=== PATIENT | female | born 2000 | race Two or more races ===

== ENCOUNTER 2025-06-14 13:25 | Outpatient (AMB) | payer MEDICAID, SELFPAY ==
[2025-06-14 13:38] VITALS: BP 124/83; PULSE 93; RESP 18; TEMP 36.7; O2SAT 95; BMI 42.8
--- NOTE | 2025-06-14 13:38 | AMB.OBINITIA ---
Vital Signs 06/14/25 13:38 Height 1.66 m Height Method Stated Weight 118.614 kg Weight Measurement Method Standing Scale BMI 42.8 BP 124/83 Blood Pressure Source Automatic Cuff Blood Pressure Location Left Upper Arm Position Sitting Respiration 18 Pulse 93 Pulse Source Monitor Temp 98.1 F Temp Source Oral Pulse Oximetry (%) 95 Oxygen Delivery Method Room Air Allergies/Home Meds Allergies & Medications Allergies No Known Allergies Allergy (Verified 06/14/25 13:41) Medication Reconciliation aspirin 81 mg tablet 81 mg PO QDAY 06/14/25 [History Confirmed 06/14/25] blood sugar diagnostic (Blood Glucose Test strips) #50 ea 06/14/25 [Rx] blood-glucose meter #1 ea 06/14/25 [Rx] labetalol 200 mg tablet 200 mg PO BID 06/14/25 [History Confirmed 06/14/25] lancets #100 ea 06/14/25 [Rx] metformin 500 mg tablet 500 mg PO BID 06/14/25 [History Confirmed 06/14/25] Intake Visit Data Collection New Patient or Established: New Patient (never been to [facility]) Reason for Visit:: TRANSFER INITIAL CARE Seen by Clinical Staff ONLY (RN/MA): No Forestry Hunter Required: No Do You Feel Safe at Home: Yes Authorities Contacted: N/A PCP or OBGYN visit in last 3 months: Yes Hx Now: Yes Are you currently on any form of Control: No Pain Present Currently: No Pain Scale Used: Mcgrath-Calvert/Numerical Pain scale:: 0 Smoking Status Smoking Status: Never smoker Immunizations Flu Vaccine in the Last 12 Months: No Flu Vaccine Exclusion Criteria: Refused by Patient Questionnaires Covid-19 Vaccine Questionnaire Has patient been vacinated for Covid-19 Have you been vacinated for Covid-19: No PHQ-9 PHQ-2 Over the last 2 weeks, how often have you been bothered by any of the following problems? 1. Little interest or pleasure in doing things: not at all 2. Feeling down, depressed, or hopeless: not at all Total score: 0 PHQ-9 3. Trouble falling or staying asleep, or sleeping too much: Not at all 4. Feeling tired or having little energy: Not at all 5. Poor appetite or overeating: Not at all 6. Feeling bad about yourself - or that you are a failure or have let yourself or your family down: Not at all 7. Trouble concentrating on things, such as reading the newspaper or watching television: Not at all 8. Moving or speaking so slowly that other people could have noticed? - Or the opposite - being so fidgety or restless that you have been moving around a lot more than usual: not at all 9. Thoughts that you would be better off or of hurting yourself in some way: Not at all Total score: 0 Source: Developed by Drs. Wale Tavares, Kandis Kennedy, Marcos Gutierrez and colleagues, with an educational andrea from [employer]. Depression screen completed yes Social History Living Situation History Lives With: Family Housing: House Tobacco History Smoking Status: Never smoker Second Hand Smoke Exposure: No Alcohol History Alcohol Intake: Never Domestic Abuse History Do You Feel Safe at Home: Yes History of Present Illness HPI Narrative 25-year-old 1 para 0 for OB. Patient is a transfer from Dr. Hernandez's office at 34 weeks. Prior to 26 weeks patient was also seen in clinic at [facility]. Patient has a history of being prediabetic and also high blood pressures however she never saw family [facility] practice for high blood pressures nor is she treated. History of irregular periods and obesity. Patient's last period was October 06, 2024. First ultrasound was [facility]. Patient was 9 weeks on January 08, 2025. And this gave a due date of August 05, 2025. Patient's first ultrasound with Dr. Macias was on May 10, 2025. The baby was 29 weeks 2 days and this gave an EDC of July 24, 2025. Looks like Dr. Macias changed her due date to July 24, 2025 because the baby was measuring big. Patient denies social habits. Denies surgery. She reports movement. Denies leaking or bleeding. Patient stated that she was started on labetalol 200 3 times daily and reports good compliance with taking that. She also reports that she was started on metformin 500 twice daily. Had a brief discussion about GDM diet. It was not advised to monitor her sugars. 1 hour was 147. In 3-hour values her fastin and 1-hour were all elevated. Her carrier screens were negative. She also had a CMP which was normal. Total protein was 252 and volume for 24-hour urine was 1750. Patient was not anemic RPR was nonreactive.GC/CT- CHISEL GRINDER: Past Medical History Past Medical History: Yes Hx Hypertension and Yes Hx Diabetes Mellitus Type 2 OB Initial Visit OB Flowsheet OB Flowsheet Initial Weight: Not Recorded Date <del>?</del> EGA Weight BP Alb Glu CTX Pres Fundal ht FHR Mov Dilation Station Effacement Hx Notes Visit Note 06/14/25 <del>?</del> 34w 2d 118.614 kg 124/83 absent unknown 34 145 active OB transfer from Dr. Macias with records. History of GDM on metformin 500 mg twice daily. She is taking labetalol 200 3 times daily for history of hypertension. Patient has a previous history of being prediabetic and she also states that her blood pressures have been high when she is going to the doctor but she has not had management. Her labs are incomplete. She has an MFM appointment coming up in June 30 Continue to take labetalol 200 3 times daily. And metformin 500 twice daily. I discussed GDM diet with patient. I ordered her glucose monitoring equipment including glucometer, lancets and test strips. She will test 4 times a day. I advised her to walk for 40 minutes a day and 10 minutes after each meal. Recheck in discussed parameters for her glucose testing. Discussed kick count twice a day. I will schedule weekly NST BPP. She will keep an appointment with MFM for June 30. If unable to locate her OB panel then I will do that when I see her next time along with GBS Menstrual History Menstrual reliability: definite Flow: heavy Menstrual regularity: irregular Monthly: No Age at menarche: 13 On control pills at conception: No Associated symptoms (LMP): Denies amenorrhea, nausea, vomiting, fatigue, breast tenderness, urinary frequency, irritability, bloating or other OB History : 1 # of Living Children: 0 Infection History & Risk Evaluation History of STDs: none Genetic Screening & History Genetic Screening/Teratology Counseling - Includes patient, baby's father, or anyone in either family with: 1. Patient's age 35 years or older as of estimated date of delivery: No 2. Thalassemia (Romanian, Nepali, Mediterranean, or Background); MCV less than 80: No 3. Neural Tube Defect (Meningomyelocele, Spina Bifida, or Anencephaly): No 4. Congenital Heart Defect: No 5. Down Syndrome: No 6. Sridhar-Sachs (Ashkenazi Nondenominational, Cajun, [place]ic [place]): No 7. Luly Disease (Ashkenazi Nondenominational): No 8. Familial Dysautonomia (Ashkenazi Nondenominational): No 9. Sickle Cell Disease or Trait (): No 10. Hemophilia or other blood disorders: No 11. Muscular Dystrophy: No 12. Cystic Fibrosis: No 13. Naty's Chorea: No 14. Mental Retardation/Autism: No 15. Other inherited genetic or chromosomal disorder: No 16. Maternal Metabolic Disorder (EG,TYPE 1 Diabetes, PKU): No 17. Patient or baby's father had a child with defects not listed above: No 18. Recurrent loss or a stillbirth: No 19. Medications (including supplements, vitamins, herbs or otc drugs)/illicit/recreational drugs/alcohol since last menstrual period: No 20. Any other: No Infection History 1. Live with someone with TB or exposed to TB: No 2. Rash or viral illness since last menstrual period: No 3. Hepatitis B,C: No Other (see comments) Source: [employer] Review of Systems Constitutional Constitutional: Denies fatigue Gastrointestinal Gastrointestinal: Denies bloating, Denies nausea and Denies vomiting Genitourinary Genitourinary: Denies amenorrhea and Denies urinary frequency Psychiatric Psychiatric: Denies irritability Endocrine Endocrine: Denies fatigue Office Procedures OBC Clinic LOC & Office Proc's Nursing/Assessment Patient Status: Initial/New Patient OB Clinic Nursing Assessment: Medication Reconciliation, Update PMH in EMR and Vital Signs OB Clinic Coordination of Care: Complex Care and Chronic Disease 1-5, Consent,records obtained, informed consent, Education Simp Pt/Fam, 1 Ins Authorization, Lab and Imaging orders, Results/Orders obtained and Staff clarify orders Special Needs: Heart tones New Patient Charge New Patient Point Assignment: [id number] New Patient Point Charge: GRADES 7 AND 8 VISITING TEACHER Level 4 ([id number]) Assessment & Plan Diagnosis / Problem List (1) Encounter for supervision of high risk in third trimester, antepartum: Status: Acute (2) Diet controlled gestational diabetes mellitus (GDM) in third trimester: Status: Acute (3) Gestational [-induced] hypertension without significant proteinuria, complicating childbirth: Status: Acute Plan Continue labetalol 200 3 times daily. Continue metformin 500 mg p.o. twice daily. I reviewed GDM diet with patient. Advised her to walk 40 minutes a day and 10 minutes after each meal. We discussed logging her glucose results after testing. Patient to test 4 times a day. I ordered her meter and strips and lancets to the pharmacy. I scheduled biweekly NST BPP. Patient is can to keep her appointment she has on the and June at [facility]. She will return in a week. Kick count twice a day. Additional Plan Follow Up: 1 Week (obc)
== END 2025-06-14 14:17 | disposition home or self-care (01) ==
LOC: HODSOBC 13:25
PROVIDERS: Supervising Provider Advanced Practice Midwife; Visit Provider Advanced Practice Midwife
DX: O09.893 Supervision of other high risk pregnancies, third trimester (principal); O13.3 Gestational [pregnancy-induced] hypertension without significant proteinuria, third trimester; O24.415 Gestational diabetes mellitus in pregnancy, controlled by oral hypoglycemic drugs; Z3A.34 34 weeks gestation of pregnancy
CPT/HCPCS: 99204; G0463

== ENCOUNTER 2025-07-06 14:19 | Outpatient (AMB) | payer MEDICAID, SELFPAY ==
[2025-07-06 14:29] VITALS: BP 128/84; PULSE 80; RESP 18; TEMP 36.2; O2SAT 98; BMI 43.8
--- NOTE | 2025-07-06 14:29 | AMB.OBPNC ---
Vital Signs 07/06/25 14:29 Height 1.66 m Height Method Stated Weight 120.826 kg Weight Measurement Method Standing Scale BMI 43.8 BP 128/84 Blood Pressure Source Automatic Cuff Blood Pressure Location Left Upper Arm Position Sitting Respiration 18 Pulse 80 Pulse Source Monitor Temp 97.2 F Temp Source Oral Pulse Oximetry (%) 98 Oxygen Delivery Method Room Air Allergies/Home Meds Allergies & Medications Allergies No Known Allergies Allergy (Verified 07/06/25 14:30) Medication Reconciliation aspirin 81 mg tablet 81 mg PO QDAY 06/14/25 [History Confirmed 07/06/25] blood sugar diagnostic (Blood Glucose Test strips) #50 ea 06/14/25 [Rx Confirmed 07/06/25] blood-glucose meter #1 ea 06/14/25 [Rx Confirmed 07/06/25] labetalol 200 mg tablet 200 mg PO BID 06/14/25 [History Confirmed 07/06/25] lancets #100 ea 06/14/25 [Rx Confirmed 07/06/25] metformin 500 mg tablet 500 mg PO BID 06/14/25 [History Confirmed 07/06/25] Immunizations Immunizations Flu Vaccine in the Last 12 Months: No Flu Vaccine Exclusion Criteria: No Exclusion Criteria Care OB Visit Log OB Flowsheet Initial Weight: Not Recorded Date <del>?</del> EGA Weight BP Alb Glu CTX Pres Fundal ht FHR Mov Dilation Station Effacement Hx Notes Visit Note 06/14/25 <del>?</del> 32w 4d 118.614 kg 124/83 absent unknown 34 145 active OB transfer from Dr. Macias with records. History of GDM on metformin 500 mg twice daily. She is taking labetalol 200 3 times daily for history of hypertension. Patient has a previous history of being prediabetic and she also states that her blood pressures have been high when she is going to the doctor but she has not had management. Her labs are incomplete. She has an MFM appointment coming up in June 30 Continue to take labetalol 200 3 times daily. And metformin 500 twice daily. I discussed GDM diet with patient. I ordered her glucose monitoring equipment including glucometer, lancets and test strips. She will test 4 times a day. I advised her to walk for 40 minutes a day and 10 minutes after each meal. Recheck in discussed parameters for her glucose testing. Discussed kick count twice a day. I will schedule weekly NST BPP. She will keep an appointment with [facility] for June 30. If unable to locate her OB panel then I will do that when I see her next time along with GBS 06/24/25 <del>?</del> 34w 0d 86.353 kg 116/71 absent cephalic 34 145 active Patient did not denies contractions. Denies bleeding. Denies leaking. Patient denies headaches, blurred vision, epigastric pain. Compliant with her labetalol 200 twice daily. And patient is also doing weekly NST BPP. Sugars are at goal 90% of the time. Patient is taking her metformin 500 twice daily. Patient did not denies contractions. Denies bleeding. Denies leaking. Patient denies headaches, blurred vision, epigastric pain. Compliant with her labetalol 200 three times daily. And patient is also doing weekly NST BPP. Sugars are at goal 90% of the time. Patient is taking her metformin 500 twice daily. Continue labetalol 200 mg 3 times daily. Patient is to continue metformin 500 mg twice daily. Continue to monitor blood sugars 4 times a day. We reviewed parameters. Walk 40 minutes a day. Patient will continue weekly NST BPP. Kick count twice a day. GBS today. Will induce at 39 weeks. Reviewed dating and labs with patient Continue labetalol 200 mg 3 times daily. Patient is to continue metformin 500 mg twice daily. Continue to monitor blood sugars 4 times a day. We reviewed parameters. Walk 40 minutes a day. Patient will continue weekly NST BPP. Kick count twice a day. GBS today. Will induce at 39 weeks. Reviewed dating and labs with patient. IOL 07/25/25 07/06/25 <del>?</del> 35w 5d 120.826 kg 128/84 absent cephalic 35 145 active Denies PIH complaints. Denies headache, blurred vision, epigastric pain. Reports good movement. Denies leaking, bleeding, contractions Continue labetalol 200 3 times daily. Continue metformin 500 p.o. twice daily continue GDM diet. We reviewed GDM diet reviewed reviewed parameters for blood sugars. Patient stated in a week her blood sugars overall were at or below goal. Patient is compliant weekly with biweekly NST BPP. She is kick count twice a day. Return in a week for OB check TOMÁS Calculator Estimated Delivery Date Method Current WG Current Estimate 08/05/25 Ultrasound #1 35w 5d Other Estimates 07/13/25 LMP (Uncertain) 39w 0d 07/24/25 Ultrasound #2 37w 3d 08/05/25 Manual 35w 5d final tomás: 08/05/25 Notes Visit Date: 07/06/25 Last Updated by: Jesenia Henriquez CNM 3rd tri lab: HCV-,HBSAG-,rpr::NR, rub NI, GC/CT-, O+,ABS-, , cmp: SGOT: 29 (wnl), ALT/SGPT: 42(high)BUN/Creatinine: 13, GBS-, OB sono: 06/30: 34w2, EFW: 91%, TOMÁS: 08/09/25 Visit Date: 06/24/25 Last Updated by: Jesenia Henriquez CNM 3rd tri labs: GC/CT-, RPR and::NR, NIPT-, CF/SMA- 25 yo , elevated BMI, GDM on metformin 500 BID and labetolol 200mg tid unsure dates: LMP: 10/06/24. 1st OB sono: 01/05/25: IUP 9w5. EDC: 08/05/25 Office Procedures OBC Clinic LOC & Office Proc's Nursing/Assessment Patient Status: Established Patient OB Clinic Nursing Assessment: Medication Reconciliation, Update PMH in EMR and Vital Signs OB Clinic Coordination of Care: Education Complex Pt/Fam, Lab and Imaging orders, Results/Orders obtained and Staff clarify orders Special Needs: Heart tones Established Patient Charge Established Patient Point Assignment: 110 Established Patient Point Charge: EP Level 3 (80-115) Assessment & Plan Diagnosis / Problem List (1) Obesity complicating , third trimester: Status: Acute Qualifiers: Obesity type affecting : severe obesity due to excess calories Qualified Code(s): O99.213 - Obesity complicating , third trimester; E66.01 - Morbid (severe) obesity due to excess calories (2) Gestational [-induced] hypertension without significant proteinuria, complicating childbirth: Status: Acute (3) Diet controlled gestational diabetes mellitus (GDM) in third trimester: Status: Acute Plan Continue metformin 500 twice daily. Continue labetalol 200 3 times daily. Reviewed the ER precautions. Reviewed signs symptoms of PIH such as blurred vision, epigastric pain headache. Discussed kick count twice a day. Continue biweekly NST BPP. Continue GDM diet. Continue to log sugars and 4 times a day. I reviewed parameters again with patient she reports that her sugars are at least at or below goal 90% of the time. I will schedule patient with OB to follow-up on management. And return in a week OB check Additional Plan Follow Up: 1 Week (obc)
== END 2025-07-06 14:54 | disposition home or self-care (01) ==
LOC: HODSOBC 14:19
PROVIDERS: Supervising Provider Advanced Practice Midwife; Visit Provider Advanced Practice Midwife
DX: O09.893 Supervision of other high risk pregnancies, third trimester (principal); O99.213 Obesity complicating pregnancy, third trimester; O24.415 Gestational diabetes mellitus in pregnancy, controlled by oral hypoglycemic drugs; Z3A.35 35 weeks gestation of pregnancy
CPT/HCPCS: 99213; G0463

== ENCOUNTER 2025-07-12 09:01 | Outpatient (AMB) | payer MEDICAID, SELFPAY ==
[2025-07-12 09:16] VITALS: BP 124/83; PULSE 80; RESP 16; TEMP 36.3; O2SAT 98; BMI 42.8
--- NOTE | 2025-07-12 09:16 | OBCLNT_ITS ---
Vital Signs 07/12/25 09:16 Height 1.66 m Height Method Stated Weight 118.104 kg Weight Measurement Method Standing Scale BMI 42.8 BP 124/83 Blood Pressure Source Automatic Cuff Blood Pressure Location Left Upper Arm Position Sitting Respiration 16 Pulse 80 Pulse Source Monitor Temp 97.3 F Temp Source Oral Pulse Oximetry (%) 98 Oxygen Delivery Method Room Air Allergies/Home Meds Allergies & Medications Allergies No Known Allergies Allergy (Verified 07/12/25 09:17) Medication Reconciliation blood sugar diagnostic (Blood Glucose Test strips) #50 ea 06/14/25 [Rx Confirmed 07/06/25] blood-glucose meter #1 ea 06/14/25 [Rx Confirmed 07/12/25] labetalol 200 mg tablet 200 mg PO BID 06/14/25 [History Confirmed 07/12/25] lancets #100 ea 06/14/25 [Rx Confirmed 07/12/25] metformin 500 mg tablet 500 mg PO BID 06/14/25 [History Confirmed 07/12/25] Immunizations Immunizations Flu Vaccine in the Last 12 Months: No Flu Vaccine Exclusion Criteria: Refused by Patient Care OB Visit Log OB Flowsheet Initial Weight: Not Recorded Date -?-?-?-?-?-?-?-?-?-?-?-?- EGA Weight BP Alb Glu CTX Pres Fundal ht FHR Mov Dilation Station Effacement Hx Notes Visit Note 06/14/25 -?-?-?-?-?-?-?-?-?-?-?-?- 32w 4d 118.614 kg 124/83 absent unknown 34 145 active OB transfer from Dr. Macias with records. History of GDM on metformin 500 mg twice daily. She is taking labetalol 200 3 times daily for history of hypertension. Patient has a previous history of being prediabetic and she also states that her blood pressures have been high when she is going to the doctor but she has not had management. Her labs are incomplete. She has an MFM appointment coming up in June 30 Continue to take labetalol 200 3 times daily. And metformin 500 twice daily. I discussed GDM diet with patient. I ordered her glucose monitoring equipment including glucometer, lancets and test strips. She will test 4 times a day. I advised her to walk for 40 minutes a day and 10 minutes after each meal. Recheck in discussed parameters for her glucose testing. Discussed kick count twice a day. I will schedule weekly NST BPP. She will keep an appointment with [facility] for June 30. If unable to locate her OB panel then I will do that when I see her next time along with GBS 06/24/25 -?-?-?-?-?-?-?-?-?-?-?-?- 34w 0d 86.353 kg 116/71 absent cephalic 34 145 active Patient did not denies contractions. Denies bleeding. Denies leaking. Patient denies headaches, blurred vision, epigastric pain. Compliant with her labetalol 200 twice daily. And patient is also doing weekly NST BPP. Sugars are at goal 90% of the time. Patient is taking her metformin 500 twice daily. Patient did not denies contr actions. Denies bleeding. Denies leaking. Patient denies headaches, blurred vision, epigastric pain. Compliant with her labetalol 200 three times daily. And patient is also doing weekly NST BPP. Sugars are at goal 90% of the time. Patient is taking her metformin 500 twice daily. Continue labetalol 200 mg 3 times daily. Patient is to continue metformin 500 mg twice daily. Continue to monitor blood sugars 4 times a day. We reviewed parameters. Walk 40 minutes a day. Patient will continue weekly NST BPP. Kick count twice a day. GBS today. Will induce at 39 weeks. Reviewed dating and labs with patient Continue labetalol 200 mg 3 times daily. Patient is to continue metformin 500 mg twice daily. Continue to monitor blood sugars 4 times a day. We reviewed parameters. Walk 40 minutes a day. Patient will continue weekly NST BPP. Kick count twice a day. GBS today. Will induce at 39 weeks. Reviewed dating and labs with patient. IOL 07/25/25 07/06/25 -?-?-?-?-?-?-?-?-?-?-?-?- 35w 5d 120.826 kg 128/84 absent cephalic 35 14 5 active Denies PIH complai nts. Denies headache, blurred vision, epigastric pain. Reports good movement. Denies leaking, bleeding, contractions Continue labetalol 200 3 times daily. Continue metformin 500 p.o. twice daily continue GDM diet. We reviewed GDM diet reviewed reviewed parameters for blood sugars. Patient stated in a week her blood sugars overall were at or below goal. Patient is compliant weekly with biweekly NST BPP. She is kick count twice a day. Return in a week for OB check 07/12/25 -?-?-?-?-?-?-?-?-?-?-?-?- 36w 4d 118.104 kg 124/83 absent cephalic 37 14 5 Patient reports fasting blood sugars are all below 100. Reports after meals below 130. Patient continues to test blood sugars 4 times a day. She has been going to her biw [employer] NST BPP. Reports good movement. Denies leaking, bleeding, contractions Continue biweekl y NST BPP. Kick count twice a day. Continue metformin 500 twice daily. Labetalol 200 mg p.o. 3 times daily. Patient continues to monitor blood sugars 4 times a day. And is compliant with GDM diet and walking. Discussed danger signs symptoms. Return in a week OB TOMÁS Calculator Estimated Delivery Date Method Current WG Current Estimate 08/05/25 Ultrasound #1 36w 4d Other Estimates 07/13/25 LMP (Uncertain) 39w 6d 07/24/25 Ultrasound #2 38w 2d 08/05/25 Manual 36w 4d final tomás: 07/18 05/12 Notes Visit Date: 07/12/25 Last Updated by: Jesenia Henriquez CNM sono: 06/30/25: [id number], EFW 91%/VTX, normal LON Visit Date: 07/06/25 Last Updated by: Jesenia Henriquez CNM 3rd tri lab: HCV-,HBSAG-,rpr::NR, rub NI, GC/CT-, O+,ABS-, , cmp: SGOT: 29 (wnl), ALT/SGPT: 42(high)BUN/Creatinine: 13, GBS-, OB sono: 06/30: 34w2, EFW: 91%, TOMÁS: 08/09/25 Visit Date: 06/24/25 Last Updated by: Jesenia Henriquez CNM 3rd tri labs: GC/CT-, RPR and::NR, NIPT-, CF/SMA- 25 yo , elevated BMI, GDM on metformin 500 BID and labetolol 200mg tid unsure dates: LMP: 10/06/24. 1st OB sono: 01/05/25: IUP 9w5. EDC: 08/05/25 Office Procedures OBC Clinic LOC & Office Proc's Nursing/Assessment Patient Status: Established Patient OB Clinic Nursing Assessment: Medication Reconciliation, Update PMH in EMR and Vital Signs OB Clinic Coordination of Care: Complex Care and Chronic Disease 1-5, Consent,records obtained, informed consent, Education Simp Pt/Fam, 1 Ins Authorization, Lab and Imaging orders, Results/Orders obtained and Staff clarify orders Special Needs: Heart tones Established Patient Charge Established Patient Point Assignment: 150 Established Patient Point Charge: EP Level 4 (120-155) Assessment & Plan Diagnosis / Problem List (1) Obesity complicating , third trimester: Status: Acute Qualifiers: Obesity type affecting : severe obesity due to excess calories Qualified Code(s): O99.213 - Obesity complicating , third trimester; E66.01 - Morbid (severe) obesity due to excess calories (2) Gestational [-induced] hypertension without significant proteinuria, complicating childbirth: Status: Acute (3) Diet controlled gestational diabetes mellitus (GDM) in third trimester: Status: Acute Plan Continue weekly NST BPP. Continue GDM diet. Continue metformin 500 twice daily and labetalol. Walk 40 minutes a day. Kick count twice a day. Continue low- dose baby aspirin as directed. Continue testing blood sugars 4 times a day and return with OB for GDM management. Additional Plan Follow Up: 1 Week (obc)
== END 2025-07-12 09:54 | disposition home or self-care (01) ==
PROVIDERS: Supervising Provider Advanced Practice Midwife; Visit Provider Advanced Practice Midwife
DX: O09.893 Supervision of other high risk pregnancies, third trimester (principal); O99.213 Obesity complicating pregnancy, third trimester; O24.415 Gestational diabetes mellitus in pregnancy, controlled by oral hypoglycemic drugs; O13.3 Gestational [pregnancy-induced] hypertension without significant proteinuria, third trimester; Z28.21 Immunization not carried out because of patient refusal; Z3A.36 36 weeks gestation of pregnancy
CPT/HCPCS: 99214; G0463

== ENCOUNTER 2025-07-19 08:58 | Outpatient (AMB) | payer MEDICAID, SELFPAY ==
[2025-07-19 09:10] VITALS: BP 131/83; PULSE 87; RESP 18; TEMP 36.8; O2SAT 98; BMI 43.4
--- NOTE | 2025-07-19 09:10 | OBCLNT_ITS ---
Vital Signs 07/19/25 09:10 Height 1.66 m Height Method Stated Weight 119.748 kg Weight Measurement Method Standing Scale BMI 43.4 BP 131/83 H Blood Pressure Source Automatic Cuff Blood Pressure Location Left Upper Arm Position Sitting Respiration 18 Pulse 87 Pulse Source Monitor Temp 98.2 F Temp Source Oral Pulse Oximetry (%) 98 Oxygen Delivery Method Room Air Allergies/Home Meds Allergies & Medications Allergies No Known Allergies Allergy (Verified 07/19/25 10:45) Immunizations Immunizations Flu Vaccine in the Last 12 Months: No Flu Vaccine Exclusion Criteria: No Exclusion Criteria Care OB Visit Log OB Flowsheet Initial Weight: Not Recorded Date -?-?-?-?-?-?-?-?-?-?-?-?- EGA Weight BP Alb Glu CTX Pres Fundal ht FHR Mov Dilation Station Effacement Hx Notes Visit Note 06/14/25 -?-?-?-?-?-?-?-?-?-?-?-?- 32w 4d 118.614 kg 124/83 absent unknown 34 145 active OB transfer from Dr. Macias with records. History of GDM on metformin 500 mg twice daily. She is taking labetalol 200 3 times daily for history of hypertension. Patient has a previous history of being prediabetic and she also states that her blood pressures have been high when she is going to the doctor but she has not had management. Her labs are incomplete. She has an M appointment coming up in June 30 Continue to take labetalol 200 3 times daily. And metformin 500 twice daily. I discussed GDM diet with patient. I ordered her glucose monitoring equipment including glucometer, lancets and test strips. She will test 4 times a day. I advised her to walk for 40 minutes a day and 10 minutes after each meal. Recheck in discussed parameters for her glucose testing. Discussed kick count twice a day. I will schedule weekly NST BPP. She will keep an appointment with [facility] for June 30. If unable to locate her OB panel then I will do that when I see her next time along with GBS 06/24/25 -?-?-?-?-?-?-?-?-?-?-?-?- 34w 0d 86.353 kg 116/71 absent cephalic 34 145 active Patient did not denies contractions. Denies bleeding. Denies leaking. Patient denies headaches, blurred vision, epigastric pain. Compliant with her labetalol 200 twice daily. And patient is also doing weekly NST BPP. Sugars are at goal 90% of the time. Patient is taking her metformin 500 twice daily. Patient did not denies contr actions. Denies bleeding. Denies leaking. Patient denies headaches, blurred vision, epigastric pain. Compliant with her labetalol 200 three times daily. And patient is also doing weekly NST BPP. Sugars are at goal 90% of the time. Patient is taking her metformin 500 twice daily. Continue labetalol 200 mg 3 times daily. Patient is to continue metformin 500 mg twice daily. Continue to monitor blood sugars 4 times a day. We reviewed parameters. Walk 40 minutes a day. Patient will continue weekly NST BPP. Kick count twice a day. GBS today. Will induce at 39 weeks. Reviewed dating and labs with patient Continue labetalol 200 mg 3 times daily. Patient is to continue metformin 500 mg twice daily. Continue to monitor blood sugars 4 times a day. We reviewed parameters. Walk 40 minutes a day. Patient will continue weekly NST BPP. Kick count twice a day. GBS today. Will induce at 39 weeks. Reviewed dating and labs with patient. IOL 07/25/25 07/06/25 -?-?-?-?-?-?-?-?-?-?-?-?- 35w 5d 120.826 kg 128/84 absent cephalic 35 14 5 active Denies PIH complai nts. Denies headache, blurred vision, epigastric pain. Reports good movement. Denies leaking, bleeding, contractions Continue labetalol 200 3 times daily. Continue metformin 500 p.o. twice daily continue GDM diet. We reviewed GDM diet reviewed reviewed parameters for blood sugars. Patient stated in a week her blood sugars overall were at or below goal. Patient is compliant weekly with biweekly NST BPP. She is kick count twice a day. Return in a week for OB check 07/12/25 -?-?-?-?-?-?-?-?-?-?-?-?- 36w 4d 118.104 kg 124/83 absent cephalic 37 14 5 Patient reports fasting blood sugars are all below 100. Reports after meals below 130. Patient continues to test blood sugars 4 times a day. She has been going to her biw eekly NST BPP. Reports good movement. Denies leaking, bleeding, contractions Continue biweekl y NST BPP. Kick count twice a day. Continue metformin 500 twice daily. Labetalol 200 mg p.o. 3 times daily. Patient continues to monitor blood sugars 4 times a day. And is compliant with GDM diet and walking. Discussed danger signs symptoms. Return in a week OB 07/19/25 -?-?-?-?-?-?-?-?-?-?-?-?- 37w 4d 119.748 kg 131/83 absent cephalic 38 14 5 active Reviewed blood sugars with OB on-call. Patient to continue metformin 500 twice daily. Also patient was scheduled for induction July 23. Morning reports good movement. Denies bleeding, contractions. Patient unsure if she has been leaking fluid. Her LON had decreased on Friday. Blood sugars are at goal 85% of the time Reviewed GDM t and weight gain. Doing low-carb and decrease sugary foods. Walk 10 minutes after each meal. Continue metformin 500 twice daily. And labetalol 200 3 times daily. Patient's induction date was changed to July 23. Patient is to keep her repeat NST BPP for July 21. Discussed signs and symptoms of labor and leaking fluid. Kick count twice a day. Patient sent to labor and delivery for rule out rupture membranes. TOMÁS Calculator Estimated Delivery Date Method Current WG Current Estimate 08/05/25 Ultrasound #1 37w 4d Other Estimates 07/13/25 LMP (Uncertain) 40w 6d 07/24/25 Ultrasound #2 39w 2d 08/05/25 Manual 37w 4d final tomás: 07/18 05/12, 06/30:iup 34w2,EFW:91% Notes Visit Date: 07/12/25 Last Updated by: Jesenia Henriquez CNM sono: 06/30/25: [id number], EFW 91%/VTX, normal LON Visit Date: 07/06/25 Last Updated by: Jesenia Henriquez CNM 3rd tri lab: HCV-,HBSAG-,rpr::NR, rub NI, GC/CT-, O+,ABS-, , cmp: SGOT: 29 (wnl), ALT/SGPT: 42(high)BUN/Creatinine: 13, GBS-, OB sono: 06/30: 34w2, EFW: 91%, TOMÁS: 08/09/25 Visit Date: 06/24/25 Last Updated by: Jesenia Henriquez CNM 3rd tri labs: GC/CT-, RPR and::NR, NIPT-, CF/SMA- 25 yo , elevated BMI, GDM on metformin 500 BID and labetolol 200mg tid unsure dates: LMP: 10/06/24. 1st OB sono: 01/05/25: IUP 9w5. EDC: 08/05/25 Office Procedures OBC Clinic LOC & Office Proc's Nursing/Assessment Patient Status: Established Patient OB Clinic Nursing Assessment: Medication Reconciliation, Update PMH in EMR and Vital Signs OB Clinic Coordination of Care: Consent,records obtained, informed consent, Education Simp Pt/Fam, Lab and Imaging orders, Results/Orders obtained and Staff clarify orders Special Needs: Heart tones Established Patient Charge Established Patient Point Assignment: 110 Established Patient Point Charge: EP Level 3 (80-115) Assessment & Plan Diagnosis / Problem List (1) Obesity complicating , third trimester: Status: Acute Qualifiers: Obesity type affecting : severe obesity due to excess calories Qualified Code(s): O99.213 - Obesity complicating , third trimester; E66.01 - Morbid (severe) obesity due to excess calories (2) Gestational [-induced] hypertension without significant proteinuria, complicating childbirth: Status: Acute (3) Diet controlled gestational diabetes mellitus (GDM) in third trimester: Status: Acute Plan Discussed kick counts twice a day. Patient sent to labor and delivery to rule out rupture membranes. Changed induction of labor date to July 23. Patient to keep her scheduled NST BPP for July 21. Continue GDM diet. Continue logging sugars 4 times a day. Increase fluids. Reviewed GDM diet and decrease sugars. Walk 40 minutes a day and 10 minutes after each meal. Return in a week if patient does not get in for induction Additional Plan Follow Up: 1 Week (obc)
== END 2025-07-19 09:49 | disposition home or self-care (01) ==
PROVIDERS: Supervising Provider Advanced Practice Midwife; Visit Provider Advanced Practice Midwife
DX: O09.893 Supervision of other high risk pregnancies, third trimester (principal); O99.213 Obesity complicating pregnancy, third trimester; O24.415 Gestational diabetes mellitus in pregnancy, controlled by oral hypoglycemic drugs; O13.3 Gestational [pregnancy-induced] hypertension without significant proteinuria, third trimester; Z3A.37 37 weeks gestation of pregnancy
CPT/HCPCS: 99213; G0463

== ENCOUNTER 2025-07-19 10:03 | Observation (INO) | payer MEDICAID, SELFPAY ==
[2025-07-19] VITALS (37 sets, daily range): BP systolic 120–140; BP diastolic 67–86; PULSE 76–93; RESP 18–99; TEMP 36.7; O2SAT 97–99; BMI 43.7
--- NOTE | 2025-07-19 10:08 | XR_ITS ---
EXAMINATION: age Limited TECHNIQUE: Limited transabdominal sonographic images pelvis Date and time: July 19, 2025, 1032 hours INDICATIONS: Hypertension in the doctor's office today, gestational diabetes, unknown presentation FINDINGS: Viable intrauterine gestation cephalic presentation spine anterior Cardiac motion 144 bpm IMPRESSION: Viable intrauterine gestation cephalic presentation
--- NOTE | 2025-07-19 10:10 | XR_ITS ---
Examination: Biophysical profile, ultrasound Date and time of exam: July 19, 2025, 1036 hours INDICATIONS: Diagnosis hypertension in the doctor's office today, diagnosis gestational diabetes Technique: Multiple transabdominal sonographic images of the pelvis abdomen obtained. Attention is directed to the breathing movement, gross body movement, amniotic fluid volume and tone. Findings: Amniotic fluid index 7.2 cm Total biophysical profile is 8 of 8. breathing movement is 2. Gross body movement is 2. tone is 2. Qualitative amniotic fluid volume is 2 Impression: Biophysical profile is 8 of 8.
[2025-07-19 10:37] LABS: Collection Type, Urine Clean Catch
[2025-07-19 10:42] LABS: ROM Kit Exp Date# 041128; ROM Kit Lot # 58106258; Swb Mxed in Solvent 1 min? Yes
[2025-07-19 10:43] LABS: ROM Swab Mixed By: ASTOA1
[2025-07-19 10:44] LABS: Rupture of Fetal Membranes Negative (Negative)
[2025-07-19 11:04] LABS: Bacteria,Urine Rare; Bilirubin,Urine Negative (Negative); Blood,Urine Negative (Negative); Color,Urine Yellow (Lt Yel-Yel); Culture Indicated,Urine Not Indicated; Glucose, Urine Negative (Negative); Ketones,Urine Negative (Negative); Leukocyte Esterase,Urine Positive (Negative); Nitrite,Urine Negative (Negative); PH,Urine 6.5 (5.0-7.0); Protein,Urine Trace (Neg - Trace); RBC,Urine 3 /hpf (0-3); Specific Gravity,Urine 1.022 (1.001-1.035); Squamous Epithelial Cell,Urine 16 /hpf (0-5); Urobilinogen,Urine Negative mg/dL (0.0-1.0); WBC,Urine 5 /hpf (0-5)
[2025-07-19 11:06] LABS: Clarity,Urine Hazy (Clear/Hazy)
[2025-07-19 11:15] LABS: Creatinine,Random Urine 136 mg/dL (30-125); Protein Total, Random Urine 34 mg/dL (1-14)
[2025-07-19 11:28] LABS: Basophils # (Auto) 0.0 Thou/mm3 (0.0-0.2); Basophils % (Auto) 0 % (0-2.5); Eosinophils # (Auto) 0.1 Thou/mm3 (0.0-0.5); Eosinophils % (Auto) 0 % (0-10); Hematocrit 37.2 % (36.0-46.0); Hemoglobin 12.5 g/dL (12.0-16.0); Immature Granulocytes Auto 0.04 Thou/mm3 (0.00-0.00); Lymphocytes # (Auto) 2.8 Thou/mm3 (1.0-4.8); Lymphocytes % (Auto) 23 % (10-50); Mean Corpuscular HGB Conc 33.6 g/dl (31.0-37.0); Mean Corpuscular Hemoglobin 30.5 pg (25.0-35.0); Mean Corpuscular Volume 91 fL (80-100); Monocytes # (Auto) 0.6 Thou/mm3 (0.0-0.8); Monocytes % (Auto) 5 % (0-12); Neutrophils # (Auto) 8.7 Thou/mm3 (1.8-7.7); Neutrophils % (Auto) 71 % (37-80); Nucleated Red Blood Cell # 0.00 Thou/mm3 (0.00-0.00); Nucleated Red Blood Cell % 0 /100 WBC (0); Platelet Count 229 Thou/mm3 (140-440); RDW Standard Deviation 42.7 fL (36.4-46.3); Red Blood Count 4.10 Miln/mm3 (4.00-5.20); White Blood Count 12.2 Thou/mm3 (3.6-11.0)
[2025-07-19 11:59] LABS: INR 0.9 (0.9-1.3); Partial Thromboplastin Time 27.7 Seconds (22.0-36.0); Prothrombin Time 9.8 Seconds (9.0-12.2)
[2025-07-19 12:09] LABS: Alanine Aminotransferase 66 U/L (10-49); Albumin, Serum 4.2 gm/dL (3.5-5.0); Alkaline Phosphatase 156 U/L (46-116); Anion Gap 11 (7-16); Aspartate Amino Transferase 41 U/L (0-34); BUN/Creatinine Ratio 10 Ratio (12-20); Bilirubin,Total 0.4 mg/dL (0.3-1.2); Blood Urea Nitrogen 6 mg/dL (9-23); Calcium 9.2 mg/dL (8.3-10.6); Calcium (Corrected) 9.2 mg/dL (8.5-10.1); Carbon Dioxide 21.9 mMol/L (20.0-31.0); Chloride 106 mMol/L (98-107); Creatinine (Component) 0.6 mg/dL (0.6-1.3); Estimated Creatinine Clearance 187.0 mL/min (>60); Glucose 86 mg/dL (74-106); LDH (Lactate Dehydrogenase) 175 U/L (120-246); Osmolality,Calculated 274 (275-295); Potassium 4.2 mMol/L (3.4-5.1); Sodium 139 mMol/L (136-145); Uric Acid 6.0 mg/dL (3.1-7.8); eGFR > 60 See Note
[2025-07-19 13:00] LABS: Albumin/Globulin Ratio 1.6 (1.2-2.2); Globulin 2.6 gm/dL (2.3-3.5); Total Protein 6.8 gm/dL (5.7-8.2)
== END 2025-07-19 12:35 | disposition home or self-care (01) ==
PROVIDERS: Admitting Provider Advanced Practice Midwife; Visit Provider Advanced Practice Midwife
DX: O24.419 Gestational diabetes mellitus in pregnancy, unspecified control (principal); O10.919 Unspecified pre-existing hypertension complicating pregnancy, unspecified trimester; Z3A.00 Weeks of gestation of pregnancy not specified
CPT/HCPCS: 36415; 59025; 59899; 76815; 76819; 80053; 81001; 82570; 83615; 84112; 84156; 84550; 85025; 85610; 85730

== ENCOUNTER 2025-07-21 14:04 | Outpatient (RCR) | payer MEDICAID, SELFPAY ==
--- NOTE | 2025-07-04 14:08 | XR_ITS ---
Examination: Biophysical profile, ultrasound Date and time of exam: July 04, 2025, 1414 hours INDICATIONS: Diagnosis morbid obesity, diagnosis maternal hypertension, diagnosis gestational diabetes Technique: Multiple transabdominal sonographic images of the pelvis abdomen obtained. Attention is directed to the breathing movement, gross body movement, amniotic fluid volume and tone. Findings: Amniotic fluid index 8.7 cm Total biophysical profile is 8 of 8. breathing movement is 2. Gross body movement is 2. tone is 2. Qualitative amniotic fluid volume is 2 Impression: Biophysical profile is 8 of 8.
[2025-07-04 14:32] VITALS: BP 130/64; PULSE 76; RESP 16; TEMP 36.8
--- NOTE | 2025-07-07 14:30 | XR_ITS ---
Examination: Biophysical profile, ultrasound Date and time of exam: July 07, 2025, 1447 hours INDICATIONS: Diagnosis morbid obesity, diagnosis hypertension, diagnosis gestational diabetes Technique: Multiple transabdominal sonographic images of the pelvis abdomen obtained. Attention is directed to the breathing movement, gross body movement, amniotic fluid volume and tone. Findings: Amniotic fluid index 8.2 cm Total biophysical profile is 8 of 8. breathing movement is 2. Gross body movement is 2. tone is 2. Qualitative amniotic fluid volume is 2 Impression: Biophysical profile is 8 of 8.
[2025-07-07 15:11] VITALS: BP 118/56; PULSE 88; RESP 16; TEMP 36.7
--- NOTE | 2025-07-11 14:22 | XR_ITS ---
EXAMINATION: US OB biophysical profile ORDERING PROVIDER: Jesenia Henriquez CNM HISTORY: BIWEEKLY NST/BPP; OBESITY TECHNIQUE: Multiple transabdominal sonographic images were obtained by radiology technologist and submitted for interpretation. COMPARISON: 07/07/2025, 07/04/2025, ultrasound biophysical profile. FINDINGS: FETUS: Marcelino. PRESENTATION: Cephalic. HEART MOTION: 138 beats/min. AMNIOTIC FLUID INDEX: 14.0 cm BREATHING MOVEMENT: 2 . GROSS BODY MOVEMENT: 2 . TONE: 2 . QUALITATIVE AMNIOTIC FLUID VOLUME: 2 TOTAL BIOPHYSICAL PROFILE: 8 of 8 . IMPRESSION: Single live intrauterine gestation with biophysical profile 8 of 8.
[2025-07-11 14:52] VITALS: BP 118/64; PULSE 85; RESP 16; TEMP 36.8
--- NOTE | 2025-07-18 14:09 | XR_ITS ---
Examination: Biophysical profile, ultrasound Date and time of exam: July 18, 2025, 1413 hours INDICATIONS: Diagnosis morbid obesity, hypertension, gestational diabetes Technique: Multiple transabdominal sonographic images of the pelvis abdomen obtained. Attention is directed to the breathing movement, gross body movement, amniotic fluid volume and tone. Findings: Amniotic fluid index 6.2 cm Total biophysical profile is 8 of 8. breathing movement is 2. Gross body movement is 2. tone is 2. Qualitative amniotic fluid volume is 2 Impression: Biophysical profile is 8 of 8.
[2025-07-18 14:49] VITALS: BP 135/71; PULSE 76; RESP 16; TEMP 36.9
--- NOTE | 2025-07-21 14:16 | XR_ITS ---
Examination: Biophysical profile, ultrasound Date and time of exam: July 21, 2025, 1419 hours INDICATIONS: Diagnosis morbid obesity, diagnosis hypertension, diagnosis gestational diabetes Technique: Multiple transabdominal sonographic images of the pelvis abdomen obtained. Attention is directed to the breathing movement, gross body movement, amniotic fluid volume and tone. Findings: Amniotic fluid index 14.2 cm Total biophysical profile is 8 of 8. breathing movement is 2. Gross body movement is 2. tone is 2. Qualitative amniotic fluid volume is 2 Impression: Biophysical profile is 8 of 8.
[2025-07-21 14:53] VITALS: BP 123/63; PULSE 82; RESP 16; TEMP 36.9
== END 2025-07-21 23:59 | disposition home or self-care (01) ==
LOC: S4S1 14:04
PROVIDERS: Referring Provider Advanced Practice Midwife; Visit Provider Advanced Practice Midwife
DX: O99.213 Obesity complicating pregnancy, third trimester (principal); E66.01 Morbid (severe) obesity due to excess calories; O24.410 Gestational diabetes mellitus in pregnancy, diet controlled; O13.3 Gestational [pregnancy-induced] hypertension without significant proteinuria, third trimester; Z3A.37 37 weeks gestation of pregnancy
CPT/HCPCS: 59025; 76819

== ENCOUNTER 2025-07-24 20:35 | Inpatient (IN) | payer MEDICAID, SELFPAY ==
[2025-07-24] VITALS (9 sets, daily range): BP systolic 138–148; BP diastolic 69–91; PULSE 71–82; BMI 43.7
--- NOTE | 2025-07-24 21:43 | XR_ITS ---
Examination: Complete OB ultrasound greater than 14 weeks Date and time of exam: July 24, 2025, 1001 hours INDICATIONS: Preop labor induction Findings: Viable intrauterine single fetus with single amniotic sac presentation cephalic Cardiac motion 169 bpm Placenta fundal maternal right grade 2 Umbilical cord insertion 3 vessel seen Amniotic fluid index 11.3 cm Cervix 4.6 cm Ovaries obscured by the fetus. Composite estimated gestational age based on BPD, head circumference, abdominal circumference, femur length is 38 weeks 5 days Estimated weight 3566 g. Survey of intracranial anatomy, spinal anatomy, abdominal anatomy, four-chamber heart performed with no abnormalities identified. Impression: Viable intrauterine gestation cephalic presentation.
[2025-07-24 23:11] LABS: Collection Type, Urine Clean Catch
[2025-07-24 23:16] LABS: Basophils # (Auto) 0.0 Thou/mm3 (0.0-0.2); Basophils % (Auto) 0 % (0-2.5); Eosinophils # (Auto) 0.1 Thou/mm3 (0.0-0.5); Eosinophils % (Auto) 1 % (0-10); Hematocrit 39.8 % (36.0-46.0); Hemoglobin 13.1 g/dL (12.0-16.0); Immature Granulocytes Auto 0.04 Thou/mm3 (0.00-0.00); Lymphocytes # (Auto) 3.3 Thou/mm3 (1.0-4.8); Lymphocytes % (Auto) 25 % (10-50); Mean Corpuscular HGB Conc 32.9 g/dl (31.0-37.0); Mean Corpuscular Hemoglobin 30.3 pg (25.0-35.0); Mean Corpuscular Volume 92 fL (80-100); Monocytes # (Auto) 0.8 Thou/mm3 (0.0-0.8); Monocytes % (Auto) 6 % (0-12); Neutrophils # (Auto) 9.4 Thou/mm3 (1.8-7.7); Neutrophils % (Auto) 69 % (37-80); Nucleated Red Blood Cell # 0.00 Thou/mm3 (0.00-0.00); Nucleated Red Blood Cell % 0 /100 WBC (0); Platelet Count 253 Thou/mm3 (140-440); RDW Standard Deviation 44.4 fL (36.4-46.3); Red Blood Count 4.33 Miln/mm3 (4.00-5.20); White Blood Count 13.6 Thou/mm3 (3.6-11.0)
[2025-07-24] MEDS: LABETALOL 100 MG TABLET 200 MG PO (23:22)
[2025-07-24 23:36] LABS: Amorphous Crystals,Urine Present (Absent); Bilirubin,Urine Negative (Negative); Blood,Urine Negative (Negative); Clarity,Urine Clear (Clear/Hazy); Color,Urine Lt-Yellow (Lt Yel-Yel); Glucose, Urine Negative (Negative); Ketones,Urine Negative (Negative); Leukocyte Esterase,Urine Negative (Negative); Nitrite,Urine Negative (Negative); PH,Urine 6.5 (5.0-7.0); Protein,Urine Trace (Neg - Trace); RBC,Urine 4 /hpf (0-3); Specific Gravity,Urine 1.028 (1.001-1.035); Squamous Epithelial Cell,Urine 12 /hpf (0-5); Urobilinogen,Urine Negative mg/dL (0.0-1.0); WBC,Urine 2 /hpf (0-5)
[2025-07-24] MEDS: FAMOTIDINE 20 MG TABLET 40 MG PO (23:37)
[2025-07-24 23:44] LABS: Alanine Aminotransferase 84 U/L (10-49); Albumin, Serum 4.4 gm/dL (3.5-5.0); Albumin/Globulin Ratio 1.5 (1.2-2.2); Alkaline Phosphatase 178 U/L (46-116); Anion Gap 12 (7-16); Aspartate Amino Transferase 58 U/L (0-34); BUN/Creatinine Ratio 10 Ratio (12-20); Bilirubin,Total 0.2 mg/dL (0.3-1.2); Blood Urea Nitrogen 11 mg/dL (9-23); Calcium 10.0 mg/dL (8.3-10.6); Calcium (Corrected) 10.0 mg/dL (8.5-10.1); Carbon Dioxide 23.7 mMol/L (20.0-31.0); Chloride 106 mMol/L (98-107); Creatinine (Component) 1.1 mg/dL (0.6-1.3); Estimated Creatinine Clearance 102.0 mL/min (>60); Globulin 2.9 gm/dL (2.3-3.5); Glucose 79 mg/dL (74-106); Osmolality,Calculated 281 (275-295); Potassium 4.1 mMol/L (3.4-5.1); Sodium 142 mMol/L (136-145); Total Protein 7.3 gm/dL (5.7-8.2); Uric Acid 6.3 mg/dL (3.1-7.8); eGFR > 60 See Note
[2025-07-25] VITALS (35 sets, daily range): BP systolic 116–155; BP diastolic 56–86; PULSE 71–92; RESP 14–17; TEMP 36.6–36.8
[2025-07-25] LABS: Fibrinogen 568 mg/dL (175-375); INR 0.9 (0.9-1.3); Partial Thromboplastin Time 25.6 Seconds (22.0-36.0); Prothrombin Time 9.7 Seconds (9.0-12.2)
[2025-07-25] MEDS: RINGERS LACTATED 1000 ML 1,000 ML 100 ML IV ×2 (00:07→14:10)
[2025-07-25 00:14] LABS: Creatinine,Random Urine 170 mg/dL (30-125); Protein Total, Random Urine 39 mg/dL (1-14)
[2025-07-25 00:30] LABS: Syphilis Nonreactive (Nonreactive)
--- NOTE | 2025-07-25 03:41 | ESHP_ITS ---
Documentation for date of: 07/25/25 OB Labor/Induct. HPI History of Present Illness : 1 Para: 0 Term pregnancies: 0 pregnancies: 0 Living children: 0 History of Abortions: Spontaneous and Elective: 0 History of sections: No History of : No TOMÁS: 08/05/25 Gestational Age (weeks): 38 Gestational Age (days): 3 History of present illness: Patient is a 25-year-old G1, P0 at 38 weeks and 3 days with estimated due date of 08/05/2025 who is presenting for her scheduled induction of labor for gestational hypertension on labetalol 200 every 8 hours as well as gestational diabetes on metformin 500 twice daily. Patient received care initially with Dr. Hernandez at [facility] but subsequently she transferred care to the [facility] clinic. Patient denies any contractions or leakage of fluid or vaginal bleeding and reports adequate movements. She has no other complaints on presentation today. records were reviewed as scanned in. Labs Labs: Negative: RPR, Hepatitis B, Rubella Titre, HIV, Chlamydia, Gonorrhea and Group Beta Strep and Unknown: Herpes Type 1, Herpes Type 2 and Covid-19 Review of Systems Review of Systems Systems Reviewed: All systems reviewed, normal except as documented Past Medical History Surgical History SURGICAL: Negative Section Meds Home Medications and Allergies Home Medications ?Medication ?Instructions ?Recorded ?Confirmed ?Type labetalol 200 mg tablet 200 mg PO BID 06/14/2507/24 History metformin 500 mg tablet 500 mg PO BID 06/14/2507/24 History Allergies Allergy/AdvReac Type Severity Reaction Status Date / Time No Known Allergies Allergy Verified 07/24/25 21:55 OB Exam Physical Exam Vital signs: Pulse BP 78 127/67 07/25/25 03:10 07/25/25 03:10 Constitutional Constitutional: no acute distress Routine HEENT Exam Head: Present normocephalic and atraumatic Eye: Present EOMI and PERRL ENT: Present mucous membranes moist Routine Neck Exam Neck: Present supple and trachea midline Routine Cardiovascular Exam Cardiovascular: Present RRR Routine Abdominal Exam Abdominal: Present soft and normoactive bowel sounds Routine Extremities Exam Extremities: Present full ROM Routine Skin Exam Skin: Present intact, dry and warm Routine Neurological Exam Neurological: Present alert, oriented X3 and CN II-XII intact Routine Psychiatric Exam Psychiatric: Present normal affect and normal thought process OB Results Labs 07/24/25 21:11 07/24/25 21:11 Labs: Short CBC 07/24/25 Range/Units 21:11 WBC 13.6 H (3.6-11.0) Thou/mm3 Hgb 13.1 (12.0-16.0) g/dL Hct 39.8 (36.0-46.0) % Plt Count 253 (140-440) Thou/mm3 BMP 07/24/25 21:11 Sodium 142 Potassium 4.1 Chloride 106 Carbon Dioxide 23.7 BUN 11 Creatinine 1.1 D Glucose 79 Calcium 10.0 Liver Function 07/24/25 Range/Units 21:11 Total Bilirubin 0.2 L (0.3-1.2) mg/dL AST 58 H (0-34) U/L ALT 84 H (10-49) U/L Alkaline Phosphatase 178 H (46-116) U/L Albumin 4.4 (3.5-5.0) gm/dL Urine 07/24/25 Range/Units 22:43 Urine Color Lt-Yellow (Lt Yel-Yel) Urine Clarity Clear (Clear/Hazy) Urine pH 6.5 (5.0-7.0) Ur Specific [place] 1.028 (1.001-1.035) Urine Protein Trace (Neg - Trace) Urine Glucose (UA) Negative (Negative) OB Assessment & Plan Assessment and Plan (1) Obesity complicating , third trimester: Status: Acute (2) Gestational [-induced] hypertension without significant proteinuria, complicating childbirth: Status: Acute Assessment and plan: Admit to inpatient status for induction of labor IV access, LR at 125 cc/h, labs to include CBC type and screen RPR and preeclampsia panel GBS positive prophylaxis per protocol Continuous maternal monitoring Pain management as per protocol Cervical ripening with misoprostol, proceed to oxytocin when Tenorio score is favorable Anticipate vaginal delivery (3) Encounter for supervision of high risk in third trimester, antepartum: Status: Acute (1) Obesity complicating , third trimester Qualifiers: Obesity type affecting : severe obesity due to excess calories Q ualified Code(s): O99.213 - Obesity complicating , third trimester; E66.01 - Morbid (severe) obesity due to excess calories
[2025-07-25] MEDS: LABETALOL 100 MG TABLET 200 MG PO ×3 (07:30→23:03)
--- NOTE | 2025-07-25 17:24 | ESPR_ITS ---
Documentation for date of: 07/25/25 OB Labor Progress Note Pain Control Pain control: tolerating well Pelvic Exam Dilation (cm): 1 Effacement (%): 60 station: -3 Amniotic membrane status: Intact Contractions Monitor mode: External Contraction frequency: 2.5-4 Contraction intensity: Mild Status status: Category l Assessment and Plan Assessment: induction ongoing Plan OB labor note: continuous present management History of Present Illness HPI Patient is a 25-year-old G1, P0 at 38 weeks and 3 days with estimated due date of 08/05/2025 who is presenting for her scheduled induction of labor for gestational hypertension on labetalol 200 every 8 hours as well as gestational diabetes on metformin 500 twice daily. Patient received care initially with Dr. Hernandez at [facility] but subsequently she transferred care to the [facility] clinic. Patient denies any contractions or leakage of fluid or vaginal bleeding and reports adequate movements. She has no other complaints on presentation today. records were reviewed as scanned in.she received cervidil yesterday and was removed at noon today cervix is still 1 cm/ 60 % and started on cytotec
[2025-07-26] VITALS (208 sets, daily range): BP systolic 121–168; BP diastolic 62–94; PULSE 65–113; RESP 15–19; TEMP 36.5–37.3; O2SAT 93–100
[2025-07-26] MEDS: RINGERS LACTATED 1000 ML 1,000 ML 100 ML IV (06:16)
--- NOTE | 2025-07-26 07:59 | PD.LDPN ---
Documentation for date of: 07/26/25 OB Labor Progress Note Pain Control Pain control: epidural Pelvic Exam Dilation (cm): 4.5 Effacement (%): 80 station: -2 Amniotic membrane status: Ruptured Contractions Monitor mode: Internal Contraction frequency: 2-3.5 Contraction intensity: Moderate Status status: Category l Assessment and Plan Assessment: induction ongoing Plan OB labor note: continuous present management History of Present Illness HPI Patient is a 25-year-old G1, P0 at 38 weeks and 3 days with estimated due date of 08/05/2025 who is presenting for her scheduled induction of labor for gestational hypertension on labetalol 200 every 8 hours as well as gestational diabetes on metformin 500 twice daily. Patient received care initially with Dr. Hernandez at [facility] but subsequently she transferred care to the [facility] TILTING HEAD BAND SAWY[facility] clinic. Patient denies any contractions or leakage of fluid or vaginal bleeding and reports adequate movements. She has no other complaints on presentation today. records were reviewed .She received cervidil yesterday and was removed at noon yesterday. She is status post 3 doses of oral Cytotec I met the patient this morning approximately 7:45 AM 07/26/2025. She had just had an epidural. Her RN reports she is 4 to 5 cm dilated. Contractions currently are every 2 minutes. She just had a Minaya placed. Plan will be to examine the patient at her approximately 2 to 3 hours and possibly AROM the patient at that time.
[2025-07-26] MEDS: LABETALOL 100 MG TABLET 200 MG PO ×3 (08:19→22:05)
[2025-07-26] MEDS: ACETAMINOPHEN IVPB 1,000 MG/100 ML VIAL 250 MG IV (11:07)
[2025-07-26] MEDS: OXYTOCIN in NS 30 units 30 UNIT/500 ML BAG IV (11:12)
--- NOTE | 2025-07-26 11:20 | PD.EVENT ---
Documentation for date of: 07/26/25 Event Note Event Note: Patient was examined at 9:30 in the morning 07/26/2025. Cervix is 5 cm 80% -2 to -3 station. Patient appears to have a narrow pubic arch. At this point, her contractions were spacing and not strong enough with an IUPC and Pitocin was ordered. Patient is having a window- type pain without pressure in her right lower quadrant. If this continues, we will have anesthesia called to bedside to evaluate the patient. EFW per patient on last ultrasound 7 pounds. EFW by my exam 8-1/2 pounds. Patient's BMI is 44
--- NOTE | 2025-07-26 16:04 | ESPR_ITS ---
Documentation for date of: 07/26/25 OB Labor Progress Note Pain Control Pain control: epidural Comments: Patient still having right sided pelvic pain with epidural in place Pelvic Exam Dilation (cm): 5 Effacement (%): 80 station: -2 Amniotic membrane status: Ruptured Contractions Monitor mode: Internal Contraction frequency: 2-3 Contraction intensity: Moderate Status status: Category l Assessment and Plan Pitocin rate (mU/min): 6 Plan OB labor note: Comments: For primary low-transverse section for arrest of dilation. called at 1600. Patient consented. She will have 3 g of Ancef now and azithr omycin IV prior to surgery. History of Present Illness HPI Patient is a 25-year-old G1, P0 at 38 weeks and 3 days with estimated due date of 08/05/2025 who is presenting for her scheduled induction of labor for gestational hypertension on labetalol 200 every 8 hours as well as gestational diabetes on metformin 500 twice daily. Patient received care initially with Dr. Hernandez at [facility] but subsequently she transferred care to the [facility] CARE TEAM COORDINATOR SCHEDULER clinic. Patient denies any contractions or leakage of fluid or vaginal bleeding and reports adequate movements. She has no other complaints on presentation today. records were reviewed .She received cervidil yesterday and was removed at noon yesterday. She is status post 3 doses of oral Cytotec I met the patient this morning approximately 7:45 AM 07/26/2025. She had just had an epidural. Her RN reports she is 4 to 5 cm dilated. I reexamined the patient around 11:30 in the morning and she was 5 cm dilated. We did start Pitocin and she made it up to 6 milliunits/min. I just reexamined the patient at 1600 and she was 5 cm. As patient has made no cervical change for greater than 5 hours, she agrees with the plan for primary low-transverse section for arrest of dilation. Patient's father the baby is at bedside as is her mother. Patient is consented for a primary low-transverse section she understands the risk of bleeding infection blood transfusion damage to bowel bladder blood vessels other organs prolonged hospital stay further surgery and above occur all questions were answered all consents were signed we will proceed with primary low-transverse section at this time.
[2025-07-26] MEDS: ceFAZolin/D5W 2 GM IV 2 GM/100 ML BAG IV (16:32)
[2025-07-26] MEDS: FAMOTIDINE INJ 10 MG/ML VIAL 2 ML 20 MG IV (16:57)
[2025-07-26] MEDS: CITRIC ACID/SODIUM CITR 15 ML UDC (BICITRA) 30 ML PO (16:57)
[2025-07-26] MEDS: ceFAZolin/D5W 1 GM IVPB 1 GM/50 ML BAG IV (16:58)
--- NOTE | 2025-07-26 18:30 | PD.GYNPROC ---
Operative Note - WEB CONTENT SPECIALIST Procedure Date of procedure: 07/26/25 Procedure Performed: Primary low-transverse section Indication: The patient is a 25-year-old G1, P0 who presented for an attempted induction of labor secondary to gestational hypertension on labetalol 200 mg 3 times daily and metformin 500 mg twice daily. She was 1 cm on admission. She underwent an attempted induction of labor with Cervidil followed by three doses of Cytotec followed by Pitocin. The patient failed to make progress for greater than 5 to 6 hours on 6 milliunits Pitocin. She never progressed past 5 cm, so she was consented for a primary low-transverse section for arrest of dilation. Pre-Op diagnosis: 1. Intrauterine at 38-3/7 weeks 2. Chronic hypertension on labetalol 3. Gestational diabetes on metformin 4. Maternal morbid obesity with a BMI of 44 5. Arrest of dilation at 5 cm Post-Op diagnosis: Same Anesthesia type: Epidural (Bolused epidural) Procedure description: After obtaining informed consent, the patient was brought back to the operating room and her epidural was bolused to obtain excellent anesthesia. She was then prepped and draped in the dorsal supine position with a leftward tilt in a normal sterile fashion. The patient had been given Ancef 3 g IV approximately 30 minutes before her incision. She was also given 500 mg of azithromycin IV. A Minaya catheter had been inserted during the patient's labor. A Pfannenstiel skin incision was made with a scalpel and carried down to the underlying fascia. The fascia was incised the midline the fascial incision extended laterally using Chen scissors. The superior aspect of the fascia was grasped with Ankit clamps and the underlying rectus muscles dissected off using blunt and sharp dissection. This was repeated in the inferior aspect of the incision. The rectus muscles were in the midline and the peritoneal cavity entered bluntly with the surgeon's fingers. The peritoneal incision was extended bluntly superiorly and inferiorly with good visualization of the bladder. The bladder blade was inserted and the uterus was incised in a low transverse fashion using a scalpel. The uterine incision was extended laterally using blunt dissection with the surgeon's fingers. The bag martini was ruptured, and clear fluid was noted. The bladder blade was removed, and the was delivered atraumatically in a vertex presentation. As the baby was vigorous at , delayed cord clamping was performed for approximately 30 to 45 seconds. The cord was then clamped and cut and the infant was handed off the waiting pediatric staff. Cord blood was collected. Cord gases were saved. Of note Dr. Lee, culinary arts instructor, was present at delivery. The placenta was then manually removed, and the uterus exteriorized and cleared of all clots and debris. The uterine incision was repaired with 0 Monocryl in a running locked fashion. A couple of [id number] sutures of 2-0 chromic were placed to obtain excellent hemostasis. Copious irrigation was then carried out and the uterine incision reexamined noted to be hemostatic. The uterus was returned to the patient's abdominal cavity and again copious irrigation was carried out. The uterine incision was again noted be hemostatic. After ensuring the rectus muscles were hemostatic, these were reapproximated in the midline using a running suture of 0 Monocryl. The fascia was closed with 0 Vicryl in a running fashion. The subcutaneous tissues were irrigated and found to be hemostatic. These were reapproximated using a running suture of 2-0 plain. The skin was closed with a subcuticular suture of 4-0 Monocryl. The procedure was then terminated. The patient tolerated the procedure well, sponge, lap, needle, and instrument counts were correct x 2. The patient went to the recovery area awake and in stable condition. Pathology was none. Fluids: crystalloid Fluid amount (mL): 900 Urine output (mL): 150 Specimen: none Implants: None Estimated blood loss (ml): 450 Findings: Liveborn male in the THERESA presentation with no nuchal cord or meconium. Apgars were 8 and 9. Weight was 7 pounds 15 ounces. Uterus, bilateral fallopian tubes and bilateral ovaries grossly normal. Ovaries with a PCOS type of appearance bilaterally. Complications: none Surgical staff Darek Linton PSYCHOLOGICAL ANTHROPOLOGIST Operation Date: 07/26/25 18:00 <No data on this case meets the specified criteria> Diagnosis Discharge Diagnosis (1) Obesity complicating , third trimester: Status: Acute (2) Gestational [-induced] hypertension without significant proteinuria, complicating childbirth: Status: Acute (3) Diet controlled gestational diabetes mellitus (GDM) in third trimester: Status: Acute (4) care following delivery: Status: Acute Problem details: The patient delivered by primary section on 07/26/2025 at approximately 1800 for arrest of dilatation at 5 cm. Problem List Completed Was Problem List Reviewed/Reconciled?: Yes (1) Obesity complicating , third trimester Qualifiers: Obesity type affecting : severe obesity due to excess calories Qualified Code(s): O99.213 - Obesity complicating , third trimester; E66.01 - Morbid (severe) obesity due to excess calories
[2025-07-26] MEDS: AZITHROMYCIN INJ 500 MG in SODIUM CHLORIDE 0.9% 250 ML 250 ML 250 MG IV (19:22)
[2025-07-26] MEDS: KETOROLAC INJ 30 MG/ML VIAL IVP (20:47)
[2025-07-26] MEDS: OXYTOCIN in NS 20 units 20 UNIT/1,000 ML BAG 125 UNIT IV (22:08)
[2025-07-27] VITALS (9 sets, daily range): BP systolic 113–126; BP diastolic 70–78; PULSE 89–100; RESP 16–20; TEMP 36.6–37.1; O2SAT 97–98
[2025-07-27] MEDS: KETOROLAC INJ 30 MG/ML VIAL IVP ×3 (03:03→17:44)
[2025-07-27] MEDS: RINGERS LACTATED 1000 ML 1,000 ML 500 ML IV (05:54)
[2025-07-27 06:16] LABS: Basophils # (Auto) 0.0 Thou/mm3 (0.0-0.2); Basophils % (Auto) 0 % (0-2.5); Eosinophils # (Auto) 0.0 Thou/mm3 (0.0-0.5); Eosinophils % (Auto) 0 % (0-10); Hematocrit 30.9 % (36.0-46.0); Hemoglobin 10.1 g/dL (12.0-16.0); Immature Granulocytes Auto 0.09 Thou/mm3 (0.00-0.00); Lymphocytes # (Auto) 3.2 Thou/mm3 (1.0-4.8); Lymphocytes % (Auto) 20 % (10-50); Mean Corpuscular HGB Conc 32.7 g/dl (31.0-37.0); Mean Corpuscular Hemoglobin 30.5 pg (25.0-35.0); Mean Corpuscular Volume 93 fL (80-100); Monocytes # (Auto) 0.9 Thou/mm3 (0.0-0.8); Monocytes % (Auto) 5 % (0-12); Neutrophils # (Auto) 12.0 Thou/mm3 (1.8-7.7); Neutrophils % (Auto) 74 % (37-80); Nucleated Red Blood Cell # 0.00 Thou/mm3 (0.00-0.00); Nucleated Red Blood Cell % 0 /100 WBC (0); Platelet Count 194 Thou/mm3 (140-440); RDW Standard Deviation 46.6 fL (36.4-46.3); Red Blood Count 3.31 Miln/mm3 (4.00-5.20); White Blood Count 16.2 Thou/mm3 (3.6-11.0)
[2025-07-27 06:39] LABS: Anion Gap 11 (7-16); BUN/Creatinine Ratio 10 Ratio (12-20); Blood Urea Nitrogen 8 mg/dL (9-23); Calcium 8.5 mg/dL (8.3-10.6); Carbon Dioxide 22.3 mMol/L (20.0-31.0); Chloride 107 mMol/L (98-107); Creatinine (Component) 0.8 mg/dL (0.6-1.3); Estimated Creatinine Clearance 140.3 mL/min (>60); Glucose 87 mg/dL (74-106); Osmolality,Calculated 276 (275-295); Potassium 4.1 mMol/L (3.4-5.1); Sodium 140 mMol/L (136-145); eGFR > 60 See Note
[2025-07-27 07:28] LABS: Alanine Aminotransferase 135 U/L (10-49); Albumin, Serum 3.1 gm/dL (3.5-5.0); Alkaline Phosphatase 131 U/L (46-116); Aspartate Amino Transferase 86 U/L (0-34); Bilirubin,Direct 0.2 mg/dL (0.0-0.3); Bilirubin,Total 0.6 mg/dL (0.3-1.2); Total Protein 5.0 gm/dL (5.7-8.2)
[2025-07-27] MEDS: ENOXAPARIN SOD INJ 40 MG/0.4 ML SYRINGE SC (07:57)
[2025-07-27] MEDS: DOCUSATE SOD 100 MG CAPSULE PO (07:57)
[2025-07-27] MEDS: RINGERS LACTATED 1000 ML 1,000 ML 100 ML IV (07:58)
[2025-07-27] MEDS: RINGERS LACTATED 1000 ML 1,000 ML 999 ML IV (09:39)
[2025-07-27] MEDS: FUROSEMIDE INJ 10 MG/ML VIAL 2 ML IVP (10:14)
[2025-07-27 10:32] LABS: Basophils # (Auto) 0.0 Thou/mm3 (0.0-0.2); Basophils % (Auto) 0 % (0-2.5); Eosinophils # (Auto) 0.0 Thou/mm3 (0.0-0.5); Eosinophils % (Auto) 0 % (0-10); Hematocrit 29.8 % (36.0-46.0); Hemoglobin 9.9 g/dL (12.0-16.0); Immature Granulocytes Auto 0.05 Thou/mm3 (0.00-0.00); Lymphocytes # (Auto) 2.6 Thou/mm3 (1.0-4.8); Lymphocytes % (Auto) 17 % (10-50); Mean Corpuscular HGB Conc 33.2 g/dl (31.0-37.0); Mean Corpuscular Hemoglobin 30.8 pg (25.0-35.0); Mean Corpuscular Volume 93 fL (80-100); Monocytes # (Auto) 0.9 Thou/mm3 (0.0-0.8); Monocytes % (Auto) 6 % (0-12); Neutrophils # (Auto) 11.4 Thou/mm3 (1.8-7.7); Neutrophils % (Auto) 76 % (37-80); Nucleated Red Blood Cell # 0.00 Thou/mm3 (0.00-0.00); Nucleated Red Blood Cell % 0 /100 WBC (0); Platelet Count 185 Thou/mm3 (140-440); RDW Standard Deviation 47.2 fL (36.4-46.3); Red Blood Count 3.21 Miln/mm3 (4.00-5.20); White Blood Count 14.9 Thou/mm3 (3.6-11.0)
[2025-07-27 10:53] LABS: Albumin, Serum 3.3 gm/dL (3.5-5.0); Anion Gap 10 (7-16); BUN/Creatinine Ratio 15 Ratio (12-20); Blood Urea Nitrogen 9 mg/dL (9-23); Calcium 8.4 mg/dL (8.3-10.6); Calcium (Corrected) 9.0 mg/dL (8.5-10.1); Carbon Dioxide 23.0 mMol/L (20.0-31.0); Chloride 107 mMol/L (98-107); Creatinine (Component) 0.6 mg/dL (0.6-1.3); Estimated Creatinine Clearance 187.0 mL/min (>60); Glucose 91 mg/dL (74-106); Osmolality,Calculated 278 (275-295); Phosphorous 2.8 mg/dL (2.4-5.1); Potassium 3.8 mMol/L (3.4-5.1); Sodium 140 mMol/L (136-145); eGFR > 60 See Note
--- NOTE | 2025-07-27 11:08 | CHAP ---
Patient was visited by a Spiritual Care Volunteer on 07/26/2025 between 0850 and 1200 and received comfort, encouragement and/or prayer.
[2025-07-27] MEDS: LABETALOL 100 MG TABLET 200 MG PO (13:47)
--- NOTE | 2025-07-27 15:11 | PD.LDPPPRG ---
Subjective Subjective Interval history: Patient has no/ complaints Headache no Blurry vision no Chest pain no Palpitations no Shortness of breath no Nausea or vomiting or constipation no Back pain no Dysuria no Dizziness no calf pain no She has low urine output and improved after iv bolus andiv lasix and now burnett will be removed Passing flatus yes Lochia minimal yes Exam Vital Signs Temp Pulse Resp BP Pulse Ox O2 Del Method 98.4 F 95 16 120/76 97 Room Air 07/27/25 14:00 07/27/25 14:00 07/27/25 14:00 07/27/25 14:00 07/27/25 14:00 07/27/25 14:00 Narrative Exam alert x3 chest clear CVS RRR NO thyromegaly Uterus is nontender Uterus is firm/ appropriate size Just below the umbilicus Bowel sounds present Abdomen soft no hernias noted/no CVAT Incision CDI No drainage Appropriately tender No calf tenderness Edema mild Objective Labs 07/27/25 10:05 07/27/25 10:05 Labs: Laboratory Results - last 24 hr 07/27/25 07/27/25 05:35 10:05 WBC 16.2 H 14.9 H RBC 3.31 L 3.21 L Hgb 10.1 L D 9.9 L Hct 30.9 L 29.8 L MCV 93 93 MCH 30.5 30.8 MCHC 32.7 33.2 RDW Std Deviation 46.6 H 47.2 H Plt Count 194 D 185 Neut % (Auto) 74 76 Lymph % (Auto) 20 17 [place] % (Auto) 5 6 Eos % (Auto) 0 0 Baso % (Auto) 0 0 Neut # (Auto) 12.0 H 11.4 H Lymph # (Auto) 3.2 2.6 [place] # (Auto) 0.9 H 0.9 H Eos # (Auto) 0.0 0.0 Baso # (Auto) 0.0 0.0 Immature Gran # (Auto) 0.09 H 0.05 H Absolute Nucleated RBC 0.00 0.00 Immature Gran % 1 H 0 Nucleated RBC % 0 0 Sodium 140 140 Potassium 4.1 3.8 Chloride 107 107 Carbon Dioxide 22.3 23.0 Anion Gap 11 10 BUN 8 L 9 Creatinine 0.8 0.6 Estim Creat Clear Calc 140.3 187.0 eGFR > 60 > 60 BUN/Creatinine Ratio 10 L 15 Glucose 87 91 Calculated Osmolality 276 278 Calcium 8.5 D 8.4 Corrected Calcium 9.0 Phosphorus 2.8 Total Bilirubin 0.6 Direct Bilirubin 0.2 AST 86 H ALT 135 H Alkaline Phosphatase 131 H D Total Protein 5.0 L Albumin 3.1 L D 3.3 L Assessment & Plan Problem List (1) Obesity complicating , third trimester: Status: Acute (2) Gestational [-induced] hypertension without significant proteinuria, complicating childbirth: Status: Acute (3) Diet controlled gestational diabetes mellitus (GDM) in third trimester: Status: Acute (4) care following delivery: Problem details: The patient delivered by primary section on 07/26/2025 at approximately 1800 for arrest of dilatation at 5 cm. Status: Acute Assessment and plan: urine output improved after iv bolus and also iv 10 mgm Lasix Monitor urine output after removal of Burnett Time Spent With Patient Time: Total time spent is greater than 50% in coordination of care (as documented) at patient's floor/unit and/or counseling patient:
[2025-07-28] VITALS (7 sets, daily range): BP systolic 125–139; BP diastolic 82–93; PULSE 86–100; RESP 17–20; TEMP 36.6–36.9; O2SAT 97–98
[2025-07-28] MEDS: SIMETHICONE 80 MG CHEW PO ×2 (01:17→05:19)
[2025-07-28] MEDS: LABETALOL 100 MG TABLET 200 MG PO ×3 (05:18→22:52)
[2025-07-28] MEDS: KETOROLAC INJ 30 MG/ML VIAL IVP ×3 (05:18→17:11)
[2025-07-28 07:25] LABS: Basophils # (Auto) 0.0 Thou/mm3 (0.0-0.2); Basophils % (Auto) 0 % (0-2.5); Eosinophils # (Auto) 0.1 Thou/mm3 (0.0-0.5); Eosinophils % (Auto) 0 % (0-10); Hematocrit 27.9 % (36.0-46.0); Hemoglobin 9.3 g/dL (12.0-16.0); Immature Granulocytes Auto 0.11 Thou/mm3 (0.00-0.00); Lymphocytes # (Auto) 2.2 Thou/mm3 (1.0-4.8); Lymphocytes % (Auto) 14 % (10-50); Mean Corpuscular HGB Conc 33.3 g/dl (31.0-37.0); Mean Corpuscular Hemoglobin 30.7 pg (25.0-35.0); Mean Corpuscular Volume 92 fL (80-100); Monocytes # (Auto) 0.8 Thou/mm3 (0.0-0.8); Monocytes % (Auto) 5 % (0-12); Neutrophils # (Auto) 12.3 Thou/mm3 (1.8-7.7); Neutrophils % (Auto) 79 % (37-80); Nucleated Red Blood Cell # 0.00 Thou/mm3 (0.00-0.00); Nucleated Red Blood Cell % 0 /100 WBC (0); Platelet Count 196 Thou/mm3 (140-440); RDW Standard Deviation 46.6 fL (36.4-46.3); Red Blood Count 3.03 Miln/mm3 (4.00-5.20); White Blood Count 15.5 Thou/mm3 (3.6-11.0)
[2025-07-28 07:54] LABS: Alanine Aminotransferase 109 U/L (10-49); Albumin, Serum 3.4 gm/dL (3.5-5.0); Albumin/Globulin Ratio 1.5 (1.2-2.2); Anion Gap 10 (7-16); Aspartate Amino Transferase 64 U/L (0-34); BUN/Creatinine Ratio 12 Ratio (12-20); Bilirubin,Total 0.3 mg/dL (0.3-1.2); Blood Urea Nitrogen 7 mg/dL (9-23); Calcium 8.5 mg/dL (8.3-10.6); Calcium (Corrected) 9.0 mg/dL (8.5-10.1); Carbon Dioxide 22.9 mMol/L (20.0-31.0); Chloride 111 mMol/L (98-107); Creatinine (Component) 0.6 mg/dL (0.6-1.3); Estimated Creatinine Clearance 187.0 mL/min (>60); Globulin 2.3 gm/dL (2.3-3.5); Glucose 99 mg/dL (74-106); Osmolality,Calculated 284 (275-295); Potassium 3.8 mMol/L (3.4-5.1); Sodium 144 mMol/L (136-145); Total Protein 5.7 gm/dL (5.7-8.2); eGFR > 60 See Note
[2025-07-28 07:57] LABS: Alkaline Phosphatase 164 U/L (46-116)
[2025-07-28] MEDS: DOCUSATE SOD 100 MG CAPSULE PO (08:13)
[2025-07-28] MEDS: ENOXAPARIN SOD INJ 40 MG/0.4 ML SYRINGE SC (08:14)
--- NOTE | 2025-07-28 10:50 | PD.LDPPPRG ---
Subjective Subjective Interval history: The patient is a 25-year-old -0-0-1 status post primary section 07/26/2025 at approximately [address] De La O. Patient failed to make progress past 5 to 6 cm and a was called. She was being induced for gestational hypertension and gestational diabetes. At home she was on labetalol 200mg 3 times daily. This morning, the patient is resting comfortably in bed with her mother at bedside. She is wearing her own pajamas. She is breast and bottlefeeding. Her blood pressures are well-controlled post operatively. Patient's liver function tests however are elevated so the plan will be to observe her overnight and recheck labs in the morning. Patient is voiding ambulating ,passing flatus, and tolerating a general diet. She has not had a bowel movement yet. Exam Vital Signs Temp Pulse Resp BP Pulse Ox O2 Del Method 97.9 F 86 18 125/82 98 Room Air 07/28/25 08:00 07/28/25 08:00 07/28/25 08:00 07/28/25 08:00 07/28/25 08:00 07/28/25 08:00 Narrative Exam The patient is alert and oriented x 3 in no apparent distress Her fundus is firm nontender Her incision is clean dry and intact Extremities show 1+ pitting edema Objective Labs 07/28/25 07:10 07/28/25 07:10 Labs: Laboratory Results - last 24 hr 07/27/25 07/28/25 10:05 07:10 WBC 15.5 H RBC 3.03 L Hgb 9.3 L Hct 27.9 L MCV 92 MCH 30.7 MCHC 33.3 RDW Std Deviation 46.6 H Plt Count 196 Neut % (Auto) 79 Lymph % (Auto) 14 [place] % (Auto) 5 Eos % (Auto) 0 Baso % (Auto) 0 Neut # (Auto) 12.3 H Lymph # (Auto) 2.2 [place] # (Auto) 0.8 Eos # (Auto) 0.1 Baso # (Auto) 0.0 Immature Gran # (Auto) 0.11 H Absolute Nucleated RBC 0.00 Immature Gran % 1 H Nucleated RBC % 0 Sodium 140 144 Potassium 3.8 3.8 Chloride 107 111 H Carbon Dioxide 23.0 22.9 Anion Gap 10 10 BUN 9 7 L Creatinine 0.6 0.6 Estim Creat Clear Calc 187.0 187.0 eGFR > 60 > 60 BUN/Creatinine Ratio 15 12 Glucose 91 99 Calculated Osmolality 278 284 Calcium 8.4 8.5 Corrected Calcium 9.0 9.0 Phosphorus 2.8 Total Bilirubin 0.3 AST 64 H ALT 109 H Alkaline Phosphatase 164 H D Total Protein 5.7 Albumin 3.3 L 3.4 L Globulin 2.3 Albumin/Globulin Ratio 1.5 Assessment & Plan Problem List (1) Obesity complicating , third trimester: Problem details: Lovenox postop Status: Acute (2) Gestational [-induced] hypertension without significant proteinuria, complicating childbirth: Problem details: Recheck PIH labs tomorrow Status: Acute (3) Diet controlled gestational diabetes mellitus (GDM) in third trimester: Status: Acute (4) care following delivery: Problem details: The patient delivered by primary section on 07/26/2025 at approximately 1800 for arrest of dilatation at 5 cm. Status: Acute Time Spent With Patient Time: Total time spent is greater than 50% in coordination of care (as documented) at patient's floor/unit and/or counseling patient: Time with patient: less than 15 minutes
[2025-07-29 04:12] VITALS: BP 135/81; PULSE 92; RESP 19; TEMP 36.4; O2SAT 98
[2025-07-29] MEDS: SIMETHICONE 80 MG CHEW PO (05:48)
[2025-07-29] MEDS: KETOROLAC INJ 30 MG/ML VIAL IVP (05:48)
[2025-07-29 05:49] VITALS: BP 129/80; PULSE 92
[2025-07-29] MEDS: LABETALOL 100 MG TABLET 200 MG PO (05:49)
[2025-07-29 06:13] VITALS: BP 128/83; PULSE 100; RESP 19; TEMP 36.7; O2SAT 99
[2025-07-29 07:27] VITALS: BP 131/83; PULSE 87; RESP 16; TEMP 36.7; O2SAT 99
[2025-07-29 08:02] LABS: Basophils # (Auto) 0.0 Thou/mm3 (0.0-0.2); Basophils % (Auto) 0 % (0-2.5); Eosinophils # (Auto) 0.1 Thou/mm3 (0.0-0.5); Eosinophils % (Auto) 1 % (0-10); Hematocrit 27.5 % (36.0-46.0); Immature Granulocytes Auto 0.07 Thou/mm3 (0.00-0.00); Lymphocytes # (Auto) 2.5 Thou/mm3 (1.0-4.8); Lymphocytes % (Auto) 18 % (10-50); Mean Corpuscular HGB Conc 32.0 g/dl (31.0-37.0); Mean Corpuscular Hemoglobin 29.8 pg (25.0-35.0); Mean Corpuscular Volume 93 fL (80-100); Monocytes # (Auto) 0.8 Thou/mm3 (0.0-0.8); Monocytes % (Auto) 6 % (0-12); Neutrophils # (Auto) 10.3 Thou/mm3 (1.8-7.7); Neutrophils % (Auto) 75 % (37-80); Nucleated Red Blood Cell # 0.00 Thou/mm3 (0.00-0.00); Nucleated Red Blood Cell % 0 /100 WBC (0); Platelet Count 221 Thou/mm3 (140-440); RDW Standard Deviation 47.2 fL (36.4-46.3); Red Blood Count 2.95 Miln/mm3 (4.00-5.20); White Blood Count 13.8 Thou/mm3 (3.6-11.0)
[2025-07-29 08:23] LABS: Alanine Aminotransferase 115 U/L (10-49); Albumin, Serum 3.5 gm/dL (3.5-5.0); Albumin/Globulin Ratio 1.5 (1.2-2.2); Alkaline Phosphatase 152 U/L (46-116); Anion Gap 10 (7-16); Aspartate Amino Transferase 63 U/L (0-34); BUN/Creatinine Ratio 18 Ratio (12-20); Bilirubin,Total 0.2 mg/dL (0.3-1.2); Blood Urea Nitrogen 9 mg/dL (9-23); Calcium 8.8 mg/dL (8.3-10.6); Calcium (Corrected) 9.2 mg/dL (8.5-10.1); Carbon Dioxide 23.7 mMol/L (20.0-31.0); Chloride 110 mMol/L (98-107); Creatinine (Component) 0.5 mg/dL (0.6-1.3); Estimated Creatinine Clearance 224.4 mL/min (>60); Globulin 2.3 gm/dL (2.3-3.5); Glucose 85 mg/dL (74-106); Osmolality,Calculated 284 (275-295); Potassium 3.7 mMol/L (3.4-5.1); Sodium 144 mMol/L (136-145); Total Protein 5.8 gm/dL (5.7-8.2); eGFR > 60 See Note
[2025-07-29 08:54] LABS: Hemoglobin 8.8 g/dL (12.0-16.0)
--- NOTE | 2025-07-29 08:59 | PD.LDPPPRG ---
Subjective Subjective Interval history: Delivery type: Patient doing well this morning. No acute complaints. Ambulating, tolerating p.o., and voiding without difficulty. HTN/Pre-E screen negative: No CP, SOB, HOSKINS, visual changes, RUQ pain. : Yes Lochia: diminishing Bowel: Flatus + / BM + UOP: Voiding freely Exam Vital Signs Temp Pulse Resp BP Pulse Ox O2 Del Method 98.0 F 87 16 131/83 H 99 Room Air 07/29/25 07:27 07/29/25 07:27 07/29/25 07:27 07/29/25 07:27 07/29/25 07:27 07/29/25 07:27 Constitutional Constitutional: no acute distress Routine HEENT Exam Head: Present normocephalic and atraumatic Eye: Present EOMI and PERRL ENT: Present mucous membranes moist Routine Neck Exam Neck: Present supple and trachea midline Routine Respiratory Exam Respiratory: Present chest non-tender, lungs clear, normal breath sounds and no resp distress Routine Cardiovascular Exam Cardiovascular: Present RRR Routine Abdominal Exam Abdominal: Present soft and normoactive bowel sounds Routine Extremities Exam Extremities: Present full ROM Routine Skin Exam Skin: Present intact, dry and warm Routine Neurological Exam Neurological: Present alert, oriented X3 and CN II-XII intact Routine Psychiatric Exam Psychiatric: Present normal affect and normal thought process Objective Labs 07/29/25 07:40 07/29/25 07:40 Labs: Laboratory Results - last 24 hr 07/29/25 07:40 WBC 13.8 H RBC 2.95 L Hgb 8.8 L Hct 27.5 L MCV 93 MCH 29.8 MCHC 32.0 RDW Std Deviation 47.2 H Plt Count 221 Neut % (Auto) 75 Lymph % (Auto) 18 [place] % (Auto) 6 Eos % (Auto) 1 Baso % (Auto) 0 Neut # (Auto) 10.3 H Lymph # (Auto) 2.5 [place] # (Auto) 0.8 Eos # (Auto) 0.1 Baso # (Auto) 0.0 Immature Gran # (Auto) 0.07 H Absolute Nucleated RBC 0.00 Immature Gran % 1 H Nucleated RBC % 0 Sodium 144 Potassium 3.7 Chloride 110 H Carbon Dioxide 23.7 Anion Gap 10 BUN 9 Creatinine 0.5 L Estim Creat Clear Calc 224.4 eGFR > 60 BUN/Creatinine Ratio 18 Glucose 85 Calculated Osmolality 284 Calcium 8.8 Corrected Calcium 9.2 Total Bilirubin 0.2 L AST 63 H ALT 115 H Alkaline Phosphatase 152 H Total Protein 5.8 Albumin 3.5 Globulin 2.3 Albumin/Globulin Ratio 1.5 Assessment & Plan Problem List (1) Obesity complicating , third trimester: Status: Acute (2) Gestational [-induced] hypertension without significant proteinuria, complicating childbirth: Status: Acute (3) Diet controlled gestational diabetes mellitus (GDM) in third trimester: Status: Acute (4) care following delivery: Status: Acute Assessment and plan: PPD/POD#3 1. Continue routine care 2. Transition to PO meds. 3. Encourage to ambulate/ breast-feed 4. Anticipate discharge home today. Time Spent With Patient Time: Total time spent is greater than 50% in coordination of care (as documented) at patient's floor/unit and/or counseling patient:
--- NOTE | 2025-07-29 09:00 | ESDS_ITS ---
DS: Providers Provider Date of admission: 07/24/25 20:35 Primary care physician: Kar Hernandez MD Admitting Provider: Kike Arteaga MD Attending Provider on Admission: Jesenia Henriquez CNM Consults: 07/26/25 18:59 Referral Routine Comment: Attending Provider on DC: Kike Arteaga MD Discharging Provider: Kike Arteaga MD DS: Diagnosis Discharge Diagnosis (1) care following delivery: Status: Acute (2) Gestational [-induced] hypertension without significant proteinuria, complicating childbirth: Status: Acute (3) Obesity complicating , third trimester: Status: Acute Problem List Completed Was Problem List Reviewed/Reconciled?: Yes Summary/Hosp Course Brief History: Patient is a 25-year-old G1, P0 at 38 weeks and 3 days with estimated due date of 08/05/2025 who is presenting for her scheduled induction of labor for gestational hypertension on labetalol 200 every 8 hours as well as gestational diabetes on metformin 500 twice daily. Patient received care initially with Dr. Hernandez at [facility] but subsequently she transferred care to the [facility] ASSISTANT DIRECTOR OF ADMISSIONS clinic. Patient denies any contractions or leakage of fluid or vaginal bleeding and reports adequate movements. She has no other complaints on presentation today. records were reviewed .She received cervidil yesterday and was removed at noon yesterday. She is status post 3 doses of oral Cytotec I met the patient this morning approximately 7:45 AM 07/26/2025. She had just had an epidural. Her RN reports she is 4 to 5 cm dilated. I reexamined the patient around 11:30 in the morning and she was 5 cm dilated. We did start Pitocin and she made it up to 6 milliunits/min. I just reexamined the patient at 1600 and she was 5 cm. As patient has made no cervical change for greater than 5 hours, she agrees with the plan for primary low-transverse section for arrest of dilation. Patient's father the baby is at bedside as is her mother. Patient is consented for a primary low-transverse section she understands the risk of bleeding infection blood transfusion damage to bowel bladder blood vessels other organs prolonged hospital stay further surgery and above occur all questions were answered all consents were signed we will proceed with primary low-transverse section at this time. Peripartum Data Delivery Method: Low Transverse Episiotomy Description: None Procedures: Procedures Operation Date: 07/26/25 18:00 Actual Procedure Side Surgeon p in OB Bilateral Susana De La O (OB Clinic)MD Time Spent with Patient Time attestation: Total time spent providing and/or coordinating discharge services: Exam Vital Signs Temp Pulse Resp BP Pulse Ox O2 Del Method 98.0 F 87 16 131/83 H 99 Room Air 07/29/25 07:27 07/29/25 07:27 07/29/25 07:27 07/29/25 07:27 07/29/25 07:27 07/29/25 07:27 Discharge Plan Plan Patient Disposition: HOME (Self Care) Disposition Comment: Please call Dr Hernandez office for 7 days post op and BP check Patient condition on transfer: Stable Prescriptions/Referrals Prescriptions/Med Rec: New hydrocodone-acetaminophen 5-325 mg tablet 1 tab PO Q6H MDD 4 PRN (Reason: pain) 5 Days Qty: 20 0RF docusate sodium [Stool Softener] 100 mg capsule 100 mg PO QDAY 30 Days Qty: 30 0RF ibuprofen 600 mg tablet 600 mg PO Q6H MDD 4 PRN (Reason: fever or pain) 10 Days Qty: 40 0RF metformin 500 mg Tablet 500 mg PO BIDAC 30 Days Qty: 60 1RF famotidine 20 mg Tablet 40 mg PO Q6HR PRN (Reason: heartburn) 30 Days Qty: 30 0RF labetalol 100 mg Tablet 200 mg PO TID 30 Days Qty: 180 1RF Continued metformin 500 mg tablet 500 mg PO BID labetalol 200 mg tablet 200 mg PO BID (DME) Blood Glucose Test Strip See Rx Instructions .MEDSUPPLY Qty: 50 3RF Rx Instructions: As directed test 4 time daily (DME) lancets Misc See Rx Instructions .MEDSUPPLY Qty: 100 3RF Rx Instructions: As directed test 4 time daily (DME) blood-glucose meter Kit See Rx Instructions .MEDSUPPLY Qty: 1 0RF Rx Instructions: as directed, Test 4 time daily Referrals: Kar Hernandez MD [Primary Care Provider, Obstetrics] Patient/Caregiver Discharge Instructions Education Materials: Expressing Your Milk, After Delivery Concerns, Breast Care After , After a , Nutrition While , Section (), What Is Gestational Diabetes?, : Caring for Yourself, C Section Dc, Feel Healthy After Print Language: Hebrew Stand Alone Forms: Aggie Award Info., Patient Portal Info Letter, DC from Surgery Discharge Order Discharge Orders: Discharge (Routine); Ordered 07/29/25 Ordered By: Kike Arteaga Planned Discharge Date 07/29/25 (3) Obesity complicating , third trimester Qualifiers: Obesity type affecting : severe obesity due to excess calories Qualified Code(s): O99.213 - Obesity complicating , third trimester; E66.01 - Morbid (severe) obesity due to excess calories
--- NOTE | 2025-08-12 10:30 | PD.LDDELS ---
Data ([place]) Data Hx Section: No Maternal Blood Type: O Pos Rubella Titre: Negative RPR: Non-reactive Labs: Negative: RPR, Hepatitis B, HIV, Chlamydia, Gonorrhea and Group Beta Strep : 1 Term: 0 : 0 Livin Abortions: Spontaneous & Theraputic: 0 Delivery Data ([place]) Labor Data Initiation of labor: Induction Induction/Augmentation Agent: Cytotec-PO, Cervidil and Pitocin ROM date: 07/26/25 ROM time: 01:05 Amniotic membrane rupture type: Spontaneous Amniotic fluid description: Clear Delivery Data EDC: 08/05/25 EDC calculated by:: LMP/early US confirmation Date of arrival to unit: 07/25/25 delivery date: 07/26/25 [place] delivery time: 17:34 Gestational age (weeks): 38 Gestational age (days): 3 Placenta delivery date: 07/26/25 Placenta delivery time: 17:35 Delivered by: Susana De La O (OB Clinic) Delivery nurse: maría Dominguez nurse: bobby Couture Alterations Dressmaker at delivery: Yes Support person(s) at delivery: FOB Other staff at delivery: see intra op documentation Delivery Method Delivery method: Low Transverse Presentation: Vertex position: OA Anesthesia Type Anesthesia Type: Spinal and Epidural Anesthesia type: Epidural (Bolused epidural) Delivery Room Medications Delivery room medications: Pitocin 20 u IV Placenta Placenta delivery description: Manual Removal Cord blood sent to lab: Yes cord blood collection: Cord Blood Type Episiotomy Episiotomy description: None EBL Estimated blood loss (ml): 450 Umbilical Cord cord description: 3 Vessels Additional Procedures See op report for further details Complications Complications: None [place] Data (Marcelino) [place] Data order: 0 's gender: Male Identification band number: [id number] weight (gms): 3590 g Weight (pounds): 7 lbs and 14.6 ozs [place] length: 55 cm 1 minute: 9 5 minutes: 9
== END 2025-07-29 10:00 | disposition home or self-care (01) | DRG 540 ==
LOC: S4SX 07-26 12:24 → S4NX 07-26 17:29
PROVIDERS: Obstetrics & Gynecology; Admitting Provider Obstetrics & Gynecology; PCP Obstetrics & Gynecology; Visit Provider Advanced Practice Midwife
PROC: (CPT 59514; principal; 2025-07-26 17:45)
DX: O13.4 Gestational [pregnancy-induced] hypertension without significant proteinuria, complicating childbirth (principal); Z37.0 Single live birth; Z3A.38 38 weeks gestation of pregnancy; E66.01 Morbid (severe) obesity due to excess calories; O99.214 Obesity complicating childbirth; O24.425 Gestational diabetes mellitus in childbirth, controlled by oral hypoglycemic drugs; O62.0 Primary inadequate contractions
CPT/HCPCS: 36415; 76805; 80048; 80053; 80069; 80076; 81001; 82570; 84156; 84166; 84550; 85025; 85384; 85610; 85730; 86780; 86850; 86900; 86901; A4217; A4314; A4649; J0131; J0456; J0689; J1650; J1885; J1938; J2250; J2274; J2371; J2590; J2795; J3010; J3490; J7050; J7120; A9270; J2270

== ENCOUNTER 2025-08-03 14:51 | Outpatient (AMB) | payer MEDICAID, SELFPAY ==
--- NOTE | 2025-08-03 14:58 | AMBOBPPN_ITS ---
Allergies/Home Meds Allergies & Medications Allergies No Known Allergies Allergy (Verified 08/03/25 15:08) Medication Reconciliation blood sugar diagnostic (Blood Glucose Test strips) #50 ea 06/14/25 [Rx Confirmed 08/03/25] blood-glucose meter #1 ea 06/14/25 [Rx Confirmed 08/03/25] labetalol 200 mg tablet 200 mg PO BID 06/14/25 [History Confirmed 08/03/25] lancets #100 ea 06/14/25 [Rx Confirmed 08/03/25] metformin 500 mg tablet 500 mg PO BID 06/14/25 [History Confirmed 08/03/25] docusate sodium 100 mg capsule (Stool Softener) 100 mg PO QDAY 30 days #30 caps 07/29/25 [Rx Confirmed 08/03/25] famotidine 20 mg tablet 40 mg (2 x 20 mg) PO Q6HR PRN heartburn 30 days #30 tabs 07/29/25 [Rx Confirmed 08/03/25] ibuprofen 600 mg tablet 600 mg PO Q6H PRN fever or pain 10 days #40 tabs 07/29/25 [Rx Confirmed 08/03/25] labetalol 100 mg tablet 200 mg (2 x 100 mg) PO TID 30 days #180 tabs 07/29/25 [Rx Confirmed 08/03/25] metformin 500 mg tablet 500 mg PO BIDAC 30 days #60 tabs 07/29/25 [Rx Confirmed 08/03/25] Intake Visit Data Collection New Patient or Established: Established Patient (seen at [facility] within 3 years) Reason for Visit:: [facility] 1SR BP : 144/91 REPEAT 133/90 Seen by Clinical Staff ONLY (RN/MA): No Ase Master Mechanic Required: No Do You Feel Safe at Home: Yes Authorities Contacted: N/A PCP or OBGYN visit in last 3 months: Yes Date of Last PCP or OBGYN visit: 07/29/25 Hx Now: No Are you currently on any form of Control: No Pain Present Currently: No Pain Scale Used: Mcgrath-Calvert/Numerical Pain scale:: 0 Smoking Status Smoking Status: Never smoker Immunizations Flu Vaccine in the Last 12 Months: No Flu Vaccine Exclusion Criteria: No 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: Past Medical History Past Medical History: Yes Hx Hypertension, No Hx Renal Disease, No Hx Diabetes Mellitus Type 1 and Yes Hx Diabetes Mellitus Type 2 Questionnaires Covid-19 Vaccine Questionnaire Has patient been vacinated for Covid-19 Have you been vacinated for Covid-19: No Social History Living Situation History Lives With: Family Housing: House Tobacco History Smoking Status: Never smoker Second Hand Smoke Exposure: No Alcohol History Alcohol Intake: Never Domestic Abuse History Do You Feel Safe at Home: Yes EPDS - PP Depression Screening [place] Pospartum Depression Screen I have been able to laugh and see the funny side of things: (0) As much as I always could I have looked forward with enjoyment to things: (0) As much as I ever did I have blamed myself unnecessarily when things went wrong: (0) No, never I have been anxious or worried for no good reason: (0) No, not at all I have felt scared or panicky for no very good reason: (0) No, not at all Things have been getting on top of me: (0) No, I have been coping as well as ever I have been so unhappy that I have had difficulty sleeping: (0) No, not at all I have felt sad or miserable: (0) No, not at all I have been so unhappy that I have been crying: (0) No, never The thought of harming myself has occurred to me: (0) Never Total Score: EPDS Score: Referral is indicated for score of 9 or more, suicidal, or if provider believes patient is depressed regardless of score.: 0 EPDS completed yes Care OB Visit Log OB Flowsheet Initial Weight: Not Recorded Date -?-?-?-?-?-?-?-?-?-?-?-?- EGA Weight BP Alb Glu CTX Pres Fundal ht FHR Mov Dilation Station Effacement Hx Notes Visit Note 06/14/25 -?-?-?-?-?-?-?-?-?-?-?-?- 32w 4d 118.614 kg 124/83 absent unknown 34 145 active OB transfer from Dr. Macias with records. History of GDM on metformin 500 mg twice daily. She is taking labetalol 200 3 times daily for history of hypertension. Patient has a previous history of being prediabetic and she also states that her blood pressures have been high when she is going to the doctor but she has not had management. Her labs are incomplete. She has an [facility] appointment coming up in June 30 Continue to take labetalol 200 3 times daily. And metformin 500 twice daily. I discussed GDM diet with patient. I ordered her glucose monitoring equipment including glucometer, lancets and test strips. She will test 4 times a day. I advised her to walk for 40 minutes a day and 10 minutes after each meal. Recheck in discussed parameters for her glucose testing. Discussed kick count twice a day. I will schedule weekly NST BPP. She will keep an appointment with [facility] for June 30. If unable to locate her OB panel then I will do that when I see her next time along with GBS 06/24/25 -?-?-?-?-?-?-?-?-?-?-?-?- 34w 0d 86.353 kg 116/71 absent cephalic 34 145 active Patient did not denies contractions. Denies bleeding. Denies leaking. Patient denies headaches, blurred vision, epigastric pain. Compliant with her labetalol 200 twice daily. And patient is also doing weekly NST BPP. Sugars are at goal 90% of the time. Patient is taking her metformin 500 twice daily. Patient did not denies contr actions. Denies bleeding. Denies leaking. Patient denies headaches, blurred vision, epigastric pain. Compliant with her labetalol 200 three times daily. And patient is also doing weekly NST BPP. Sugars are at goal 90% of the time. Patient is taking her metformin 500 twice daily. Continue labetalol 200 mg 3 times daily. Patient is to continue metformin 500 mg twice daily. Continue to monitor blood sugars 4 times a day. We reviewed parameters. Walk 40 minutes a day. Patient will continue weekly NST BPP. Kick count twice a day. GBS today. Will induce at 39 weeks. Reviewed dating and labs with patient Continue labetalol 200 mg 3 times daily. Patient is to continue metformin 500 mg twice daily. Continue to monitor blood sugars 4 times a day. We reviewed parameters. Walk 40 minutes a day. Patient will continue weekly NST BPP. Kick count twice a day. GBS today. Will induce at 39 weeks. Reviewed dating and labs with patient. IOL 07/25/25 07/06/25 -?-?-?-?-?-?-?-?-?-?-?-?- 35w 5d 120.826 kg 128/84 absent cephalic 35 14 5 active Denies PIH complaints. Denies headache, blurred vision, epigastric pain. Reports good movement. Denies leaking, bleeding, contractions Continue labetalol 200 3 times daily. Continue metformin 500 p.o. twice daily continue GDM diet. We reviewed GDM diet reviewed reviewed parameters for blood sugars. Patient stated in a week her blood sugars overall were at or below goal. Patient is compliant weekly with biweekly NST BPP. She is kick count twice a day. Return in a week for OB check 07/12/25 -?-?-?-?-?-?-?-?-?-?-?-?- 36w 4d 118.104 kg 124/83 absent cephalic 37 14 5 Patient reports fasting blood sugars are all below 100. Reports after meals below 130. Patient continues to test blood sugars 4 times a day. She has been going to her biweekly NST BPP. Reports good movement. Denies leaking, bleeding, contractions Continue biweekl y NST BPP. Kick count twice a day. Continue metformin 500 twice daily. Labetalol 200 mg p.o. 3 times daily. Patient continues to monitor blood sugars 4 times a day. And is compliant with GDM diet and walking. Discussed danger signs symptoms. Return in a week OB 07/19/25 -?-?-?-?-?-?-?-?-?-?-?-?- 37w 4d 119.748 kg 131/83 absent cephalic 38 14 5 active Reviewed blood sugars with OB on-call. Patient to continue metformin 500 twice daily. Also patient was scheduled for induction July 23. Morning reports good movement. Denies bleeding, contractions. Patient unsure if she has been leaking fluid. Her LON had decreased on Friday. Blood sugars are at goal 85% of the time Reviewed GDM t and weight gain. Doing low-carb and decrease sugary foods. Walk 10 minutes after each meal. Continue metformin 500 twice daily. And labetalol 200 3 times daily. Patient's induction date was changed to July 23. Patient is to keep her repeat NST BPP for July 21. Discussed signs and symptoms of labor and leaking fluid. Kick count twice a day. Patient sent to labor and delivery for rule out rupture membranes. 08/03/25 -?-?-?-?-?-?-?-?-?-?-?-?- 39w 5d TOMÁS Calculator Estimated Delivery Date Method Current WG Current Estimate 08/05/25 Ultrasound #1 39w 5d Other Estimates 07/13/25 LMP (Uncertain) 43w 0d 07/24/25 Ultrasound #2 41w 3d 08/05/25 Manual 39w 5d final tomás: 07/18 05/12, 06/30:iup 34w2,EFW:91% Notes Visit Date: 07/12/25 Last Updated by: Jesenia Henriquez CNM sono: 06/30/25: [id number], EFW 91%/VTX, normal LON Visit Date: 07/06/25 Last Updated by: Jseenia Henriquez CNM 3rd tri lab: HCV-,HBSAG-,rpr::NR, rub NI, GC/CT-, O+,ABS-, , cmp: SGOT: 29 (wnl), ALT/SGPT: 42(high)BUN/Creatinine: 13, GBS-, OB sono: 06/30: 34w2, EFW: 91%, TOMÁS: 08/09/25 Visit Date: 06/24/25 Last Updated by: Jesenia Henriquez CNM 3rd tri labs: GC/CT-, RPR and::NR, NIPT-, CF/SMA- 25 yo , elevated BMI, GDM on metformin 500 BID and labetolol 200mg tid unsure dates: LMP: 10/06/24. 1st OB sono: 01/05/25: IUP 9w5. EDC: 08/05/25 Office Procedures [facility] LOC & Office Proc's Nursing/Assessment Patient Status: Established Patient OB Clinic Nursing Assessment: Medication Reconciliation, Update PMH in EMR and Vital Signs OB Clinic Coordination of Care: Complex Care and Chronic Disease 1-5, Consent,records obtained, informed consent, Education Simp Pt/Fam, Lab and Imaging orders, Results/Orders obtained and Staff clarify orders Established Patient Charge Established Patient Point Assignment: 105 Established Patient Point Charge: EP Level 3 (80-115)
== END 2025-08-03 15:42 | disposition home or self-care (01) ==
LOC: HODSOBC 14:51
PROVIDERS: PCP Obstetrics & Gynecology; Referring Provider Obstetrics & Gynecology; Supervising Provider Advanced Practice Midwife; Visit Provider Advanced Practice Midwife
DX: Z39.2 Encounter for routine postpartum follow-up (principal); O24.435 Gestational diabetes mellitus in puerperium, controlled by oral hypoglycemic drugs; O10.93 Unspecified pre-existing hypertension complicating the puerperium; Z79.899 Other long term (current) drug therapy
CPT/HCPCS: 99213; G0463